=== PATIENT | female | born 1940 | race Caucasian/White ===

== ENCOUNTER 2017-10-11 20:58 | Emergency (ER) | payer MEDICARE, SELFPAY ==
[2017-10-11 21:07] VITALS: BP 119/67; PULSE 74; RESP 18; TEMP 36.9; O2SAT 97
--- NOTE | 2017-10-11 21:26 | DI.RAD.S_ITS ---
PROCEDURE: XR HAND LT MIN 3V INDICATIONS: left hand / thumb pain after striking it TECHNIQUE: 3 views of the hand(s) acquired. COMPARISON: None. FINDINGS: Bones: No fractures or dislocations. Carpal bones are normally aligned. No suspicious bony lesions. 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 Soft tissues: No suspicious soft tissue calcifications. IMPRESSION: No fracture. No acute osseous lesion. If there are persistent symptoms or clinical suspicion for pathology, then repeat radiographs or advanced imaging (CT, MRI or bone scan) should be considered for further evaluation. Dictated by: Elsa Singer MD, PhD on 10/11/2017 at 21:47 Approved by: Elsa Singer MD, PhD on 10/11/2017 at 21:49
--- NOTE | 2017-10-11 22:03 | ED.UPPEXIN ---
HPI - Extremity Injury (Upper) General Chief Complaint: Extremity Injury, Upper Stated Complaint: LEFT HAND INJURY Time Seen by Provider: 10/11/17 21:16 History of Present Illness HPI narrative: HPI 77-year-old female presents for evaluation of left thumb pain after dropping a large jar of peanut butter on it earlier today. Pain gradually worsened after dropping the peanut butter jar. Notes normal sensation. Denies further injuries. ROS with no recent constitutional symptoms. Exam Gen: Pleasant, non-toxic appearing, resting comfortably HEENT: NC, AT, PEERL, EOMI. Resp: Clear to auscultation bilaterally. Unlabored respirations with a normal work of breathing. Card: Regular rate and rhythm. Extremities warm and well perfused. GI: Non-distended. : Deferred MSK: Left Upper Extremity - visually normal, full functional range of motion of the shoulder, elbow, wrist, and fingers. No abnormal warmth, tenderness, or other palpable abnormalities of the joints or upper arm or forearm; muscle compartments soft.2+ radial pulse, all fingers warm and well perfused.Sensation intact to touch on all fingers. Patient able to flex, extend, abduct, adduct all fingers and move thumb in opposition with full functional range of motion. Brisk capillary refill in all fingers. No anatomic snuff box tenderness palpation. Negative hook of hamate pull test. Wrist visually normal without tenderness palpation. Mild tenderness to palpation of the base of the thumb. Neuro: AO x 3, no facial asymmetry, vision and hearing WNL. Heme/Lymph: Deferred Skin: Normal color with no visible lesions (other than noted above). Psych: Mood and affect appropriate. XR L Hand: no acute traumatic abnormalities. MDM Previous chart, nursing note, and vitals reviewed. A: 77-year-old female presents for evaluation of left thumb pain after dropping a large jar of peanut butter on it earlier today. DDx & Evaluation: imaging without evidence of fracture, exam without evidence of occult scaphoid or hook of hamate injury, CMS intact.. Suspect contusions. Discharged with instructions to use OTC analgesics as needed. Return to care precautions provided. Impression: left hand pain. (please reference below for remainder of encounter information) Related Data Home Medications Medication Instructions Recorded Confirmed CALCIUM CARBONATE (#CALCIUM) 1,000 mg PO QDAY #0 01/01/11 Vitamin E Succinate (#VITAMIN E) 400 iu PO QDAY #0 01/01/11 cholecalciferol (vitamin D3) 5,000 u PO QDAY #0 01/01/11 [Vitamin D3] ibuprofen 200 mg PO PRN #0 01/01/11 [VITAMIN C] 1,500 PO QDAY #0 01/08/11 niacinamide [Niacin (niacinamide)] 1,500 mg PO QDAY #0 01/08/11 alendronate [Fosamax] 70 mg PO QWEEK #0 02/27/16 citalopram [Celexa] 10 mg PO QDAY #0 02/27/16 Allergies Allergy/AdvReac Type Severity Reaction Status Date / Time No Known Drug Allergies Allergy Verified 10/11/17 21:07 [facility] Social History Smoking Status: Never smoker Exam Initial Vital Signs Initial Vital Signs: Vital Signs Temperature 98.5 F 10/11/17 21:07 Pulse Rate 74 10/11/17 21:07 Respiratory Rate 18 10/11/17 21:07 Blood Pressure 119/67 10/11/17 21:07 Pulse Oximetry 97 10/11/17 21:07 Course Orders Ordered: ED Orders 10/11/17 21:26 XR hand LT min 3V Stat Vital Signs - 8 hr 10/11/17 21:07 Temperature 98.5 F Pulse Rate 74 Respiratory Rate 18 Blood Pressure 119/67 Pulse Oximetry 97 Discharge Plan Departure Prescriptions: No Action CALCIUM CARBONATE (#CALCIUM) 1,000 mg PO QDAY Qty: 0 RF: 0 cholecalciferol (vitamin D3) [Vitamin D3] 1,000 UNIT tablet 5,000 u PO QDAY Qty: 0 RF: 0 Vitamin E Succinate (#VITAMIN E) 400 iu PO QDAY Qty: 0 RF: 0 ibuprofen 200 MG capsule 200 mg PO PRN Qty: 0 RF: 0 [VITAMIN C] 1,500 PO QDAY Qty: 0 RF: 0 niacinamide [Niacin (niacinamide)] 500 MG tablet 1,500 mg PO QDAY Qty: 0 RF: 0 citalopram [Celexa] 10 MG tablet 10 mg PO QDAY Qty: 0 RF: 0 alendronate [Fosamax] 70 MG tablet 70 mg PO QWEEK Qty: 0 RF: 0
[2017-10-11 22:40] VITALS: BP 136/71; PULSE 69; RESP 15; O2SAT 97
== END 2017-10-11 22:42 | disposition home or self-care (01) ==
PROVIDERS: Emergency Provider Emergency Medicine; Family Provider Physician Assistant; PCP Physician Assistant
DX: M79.642 Pain in left hand (principal)
CPT/HCPCS: 73130; 99282; 99283

== ENCOUNTER → 2018-06-16 15:58 | Outpatient (CLI) | payer MEDICARE, SELFPAY ==
--- NOTE | 2018-06-16 | DI.RAD.S_ITS ---
PROCEDURE: XR CHEST 2V INDICATIONS: COUGH TECHNIQUE: 2 views of the chest were acquired. COMPARISON: [facility], , CHEST 1VW (PORTABLE), 06/05/2014, 10:26. FINDINGS: Surgical changes and devices: None. Lungs and pleura: No acute consolidation. Scattered subsegmental atelectasis and/or scarring. No pleural effusions or pneumothorax. Mediastinum: Mediastinal contours are normal. Heart size is normal. Lateral curvature of the spine. IMPRESSION: No acute disease. Dictated by: Clem Escobar M.D. on 06/16/2018 at 17:23 Approved by: Clem Escobar M.D. on 06/16/2018 at 17:25
== END ==
PROVIDERS: PCP Physician Assistant; Visit Provider Physician Assistant
DX: R05 Cough (principal)
CPT/HCPCS: 71046

== ENCOUNTER 2018-06-17 03:13 | Observation (INO) | payer MEDICARE, SELFPAY ==
--- NOTE | 2018-06-17 | DI.US.S_ITS ---
PROCEDURE: US PERIPH VENOUS LOW EXTREM LT INDICATIONS: LLE EDEMA, PAIN TECHNIQUE: Real-time imaging, as well as color and pulse Doppler interrogation, were performed of the lower extremity deep veins from the inguinal ligament to the popliteal fossa. COMPARISON: None. FINDINGS: The deep veins are normally compressible, and free of intraluminal thrombus. Color and pulse Doppler demonstrate normal phasic intraluminal flow. There is normal augmentation response to distal compression maneuver. IMPRESSION: No DVT found. Dictated by: Yanick Tatum M.D. on 06/17/2018 at 8:46 Approved by: Yanick Tatum M.D. on 06/17/2018 at 8:47
[2018-06-17 03:22] VITALS: BMI 24.7
[2018-06-17 03:25] VITALS: BP 164/83; PULSE 76; RESP 14; TEMP 36.4; O2SAT 100
[2018-06-17] MEDS: ASPIRIN 81 MG TAB 324 MG PO (03:37)
[2018-06-17] MEDS: SODIUM CHLORIDE 0.9% 1,000 ML 150 ML IV (03:38)
[2018-06-17 03:44] LABS: Add Manual Diff / Slide Review NO; Basophils Absolute Auto 0 /uL (0-100); Basophils Percent Auto 0.6 % (0-2); Eosinophils Absolute Auto 200 /uL (0-450); Hematocrit 43.9 % (36-46); Hemoglobin 14.6 g/dL (12.0-16.0); Lymphocytes Absolute Auto 2100 /uL (1100-4500); Lymphocytes Percent Auto 34.5 % (25-40); Mean Corpuscular HGB Conc 33.3 % (30-36); Mean Corpuscular Hemoglobin 29.7 PG (26-34); Monocytes Absolute Auto 600 /uL (0-900); Monocytes Percent Auto 10.5 % (3-14); Neutrophils Absolute Auto 3000 /uL (1500-7000); Neutrophils Percent Auto 50.4 % (50-75); Platelet Count 265 X10^3/uL (150-400); Red Blood Cell Count 4.94 X10^6/uL (4.0-5.2); Red Cell Distribution Width 13.8 % (11.6-14.8); White Blood Cell Count 5.9 X10^3/uL (4.5-11.0)
[2018-06-17 03:46] LABS: Alanine Aminotransferase 43 IU/L (9-52); Albumin 4.4 g/dL (3.5-5.0); Albumin Globulin Ratio 1.6 (1.0-2.8); Alkaline Phosphatase 53 U/L (38-126); Aspartate Aminotransferase 30 IU/L (14-36); Bilirubin Total 0.6 mg/dL (0.2-1.3); Blood Urea Nitrogen 15 mg/dL (7-17); Calcium 9.5 mg/dL (8.4-10.2); Carbon Dioxide 26 mmol/L (22-32); Chloride 107 mmol/L (98-107); Creatine Kinase 120 U/L (30-135); Estimated Glomerular Filt Rate > 60.0 mL/min (>60); Globulin 2.8 g/dL (1.7-4.1); Glucose 96 mg/dL (80-110); HEMOLYSIS < 15 (0-50); Lipase 179 U/L (23-300); Potassium 3.4 mmol/L (3.4-5.1); Sodium 141 mmol/L (137-145); Total Protein 7.2 g/dL (6.3-8.2)
[2018-06-17 03:57] LABS: Troponin I < 0.012 ng/mL (0.01-0.034)
[2018-06-17 04:00] LABS: B Type Natriuretic Peptide < 100 (<100)
[2018-06-17 04:01] LABS: CKMB % Relative Index 3.1 % (1.5-5.0); Creatine Kinase MB 3.75 ng/mL (<2.37)
--- NOTE | 2018-06-17 04:02 | ED_ITS ---
HPI - Chest Pain General Chief Complaint: Shortness of Breath/Dyspnea Stated Complaint: shortness of breath uncomfortable right side Time Seen by Provider: 06/17/18 03:21 Source: patient and family Mode of arrival: ambulatory Limitations: no limitations History of Present Illness HPI narrative: 77-year-old female nonsmoker with history of chronic cough presents to the emergency department this morning with her in the chief complaint of approximately 30 min of right-sided chest pressure with radiation to her back. She states she has an associated shortness of breath. She is not dizzy nor weak or lightheaded. She denies any provocation or palliation of her discomfort. She saw her primary care provider earlier today with a chief complaint of a chronic cough. She states that deep breath, cough or use of her right upper extremity do not worsen her pain. She denies provocation of her pain with palpation. She has had some whitish sputum production but is otherwise well and free of complaint. She denies nausea, vomiting or diarrhea. She denies any dysuria, frequency or urgency. She denies any history of the same. She has had no recent long-distance travel and denies a history of clot Related Data Home Medications Medication Instructions Recorded Confirmed CALCIUM CARBONATE (#CALCIUM) 1,000 mg PO QDAY #0 01/01/11 Vitamin E Succinate (#VITAMIN E) 400 iu PO QDAY #0 01/01/11 cholecalciferol (vitamin D3) 5,000 u PO QDAY #0 01/01/11 [Vitamin D3] ibuprofen 200 mg PO PRN #0 01/01/11 [VITAMIN C] 1,500 PO QDAY #0 01/08/11 niacinamide [Niacin (niacinamide)] 1,500 mg PO QDAY #0 01/08/11 alendronate [Fosamax] 70 mg PO QWEEK #0 02/27/16 citalopram [Celexa] 10 mg PO QDAY #0 02/27/16 Allergies Allergy/AdvReac Type Severity Reaction Status Date / Time No Known Drug Allergies Allergy Verified 10/11/17 21:07 Review of Systems Constitutional Denies chills, Denies fever(s), Denies lethargy and Denies weakness Eyes Denies change in vision, Denies eye discharge, Denies irritation and Denies loss of vision ENT Ears, Nose, Mouth, and Throat: Denies change in voice, Denies neck pain and Denies sore throat Cardiovascular Reports chest pain, Denies irregular heart rhythm, Denies lightheadedness, Denies palpitations, Reports dyspnea, Denies dyspnea on exertion and Denies orthopnea Respiratory Denies cough, Reports dyspnea, Denies dyspnea on exertion and Denies wheezing Gastrointestinal Gastrointestinal: Denies abdominal pain, Denies change in bowel habits, Denies diarrhea, Denies nausea and Denies vomiting Genitourinary Denies hematuria, Denies flank pain, Denies urinary incontinence and Denies urinary urgency Musculoskeletal Denies neck pain Integumentary/Breasts Denies pruritus, Denies erythema, Denies rash and Denies wounds Neurologic Denies confusion, Denies loss of vision and Denies weakness Psychiatric Denies anxiety, Denies confusion, Denies depression, Denies homicidal ideation and Denies suicidal ideation Endocrine Denies palpitations Hematologic/Lymphatic Denies easy bruising Allergic/Immunologic Denies wheezing PFSH Social History Smoking Status: Never smoker Social History Smoking Status: Never smoker Exam Narrative Exam Narrative: GENERAL: Pleasant 77-year-old female appears younger than stated age in mild distress HEAD: Atraumatic. Normocephalic. No temporal or scalp tenderness. EYES: Pupils equal round and reactive. Extraocular motions intact. No scleral icterus. No injection or drainage. ENT: Nose without bleeding, purulent drainage or septal hematoma. Throat without erythema, tonsillar hypertrophy or exudate. Uvula midline. Airway patent. NECK: Trachea midline. No JVD or lymphadenopathy. Supple, nontender, no meningeal signs. CARDIOVASCULAR: Regular rate and rhythm without murmurs, gallops, or rubs. No reproducible pain with palpation or range of motion of right upper extremity RESPIRATORY: Clear to auscultation. Breath sounds equal bilaterally. No wheezes, rales, or rhonchi. GASTROINTESTINAL: Abdomen soft, non-tender, nondistended. No hepato- splenomegaly, or palpable masses. No guarding. EXTREMITIES: No clubbing, cyanosis, or edema. No joint tenderness, effusion, or edema noted. BACK: Nontender without deformity or crepitance. No flank tenderness. NEURO: AOx3. SKIN: No rash or erythema. Initial Vital Signs Initial Vital Signs: Vital Signs Temperature 97.6 F 06/17/18 03:25 Pulse Rate 76 06/17/18 03:25 Respiratory Rate 14 06/17/18 03:25 Blood Pressure 164/83 H 06/17/18 03:25 Pulse Oximetry 100 06/17/18 03:25 Scores HEART Score Heart Score history: Moderately Suspicious Heart Score EKG: Non-Specific repolarization disturbance Heart Score Age: > or = 65 years old Heart Score risk factors: No known risk factors Heart Score troponin: < or = to normal limit Heart Score Total: 4 PERC Score Age greater than or equal to 50 years: Yes Heart rate greater than or equal to 100 bpm: No Room Air O2 Sat less than 95%: No Unilateral leg swelling: No Recent trauma or surgery: No Hemoptysis: No Prior PE or DVT: No Hormone Use: No Total PERC Score: 1 Vinh' Criteria for PE Clinical signs and symptoms of PE: No PE is #1 Dx or equally likely: No Heart rate > 100: No Immobilization at least 3 days or surg in previous 4 weeks: No History of PE or DVT: No Hemoptysis: No Malignancy w/Treatment within 6 months or palliative: No Wells' PE Score total: 0 Course Course Narrative: Using Nehemias Hess's PE algorithim (also found in UTDOL) patient Wells Score calculated and low risk path followed. Not PERC negative given age therefore DDimer ordered. Though very slightly elevated at 259 ng/mL it is still quite low when corrected for age (790) and no CTA needed. Patient HEART score is 4, this and time frame make it impossible to safely discharge patient from the ED. She will need to come into the hospital for further evaluation of her chest pressure, which will surely include repeat labs, but also possible ECHO, stress test, or other (as dictated by hospitalist) Orders Ordered: ED Orders 06/17/18 03:20 B Type Natriuretic Peptide Stat Complete Blood Count AUTO DIFF Stat Comprehensive Metabolic Panel Stat D Dimer Stat Lipase Stat Troponin & CK Cardiac Panel Stat 06/17/18 03:26 EKG-12 Lead Stat Sodium Chloride (Normal Saline 0.9%) 1,000 mls @ 150 mls/hr IV CONT GRETTA Last Admin: 06/17/18 03:38 Dose: 150 mls/hr Discontinued Medications Aspirin (Aspirin Chew) 324 mg PO NOW ONE Stop: 06/17/18 03:27 Last Admin: 06/17/18 03:37 Dose: 162 mg Consultations Consultation #1: hospitalist happy to accept Vital Signs - 8 hr 06/17/18 03:25 06/17/18 04:33 Temperature 97.6 F Pulse Rate 76 65 Respiratory Rate 14 14 Blood Pressure [Left Arm] 164/83 H 126/73 Pulse Oximetry 100 97 MDM - Chest Pain Medical Records Data Attestation: I reviewed the patient's medical records. Lab Data Attestation: I reviewed the patient's lab results. Result diagrams: 06/17/18 03:20 06/17/18 03:20 Lab Results 06/17/18 06/17/18 06/17/18 Range/Units 03:20 03:20 03:20 WBC 5.9 (4.5-11.0) X10^3/uL RBC 4.94 (4.0-5.2) X10^6/uL Hgb 14.6 (12.0-16.0) g/dL Hct 43.9 (36-46) % MCV 89.0 (80-100) fL MCH 29.7 (26-34) PG MCHC 33.3 (30-36) % RDW 13.8 (11.6-14.8) % Plt Count 265 (150-400) X10^3/uL Neut % (Auto) 50.4 (50-75) % Lymph % (Auto) 34.5 (25-40) % [place] % (Auto) 10.5 (3-14) % Eos % (Auto) 4.0 (2-4) % Baso % (Auto) 0.6 (0-2) % Neut # (Auto) 3000 (3018-1593) /uL Lymph # (Auto) 2100 (1942-3352) /uL [place] # (Auto) 600 (0-900) /uL Eos # (Auto) 200 (0-450) /uL Baso # (Auto) 0 (0-100) /uL D-Dimer 259 H (<230) ng/mL Sodium 141 (137-145) mmol/L Potassium 3.4 (3.4-5.1) mmol/L Chloride 107 (98-107) mmol/L Carbon Dioxide 26 (22-32) mmol/L BUN 15 (7-17) mg/dL Creatinine 0.60 (0.52-1.04) mg/dL Estimated GFR > 60.0 (>60) mL/min BUN/Creatinine Ratio 25.0 H (6-22) Glucose 96 (80-110) mg/dL Calcium 9.5 (8.4-10.2) mg/dL Total Bilirubin 0.6 (0.2-1.3) mg/dL AST 30 (14-36) IU/L ALT 43 (9-52) IU/L Alkaline Phosphatase 53 (38-126) U/L Total Creatine Kinase 120 (30-135) U/L CK-MB (CK-2) 3.75 H (<2.37) ng/mL CK-MB (CK-2) Rel Index 3.1 (1.5-5.0) % Troponin I < 0.012 (0.01-0.034) ng/mL B-Natriuretic Peptide < 100 (<100) Total Protein 7.2 (6.3-8.2) g/dL Albumin 4.4 (3.5-5.0) g/dL Globulin 2.8 (1.7-4.1) g/dL Albumin/Globulin Ratio 1.6 (1.0-2.8) Lipase 179 (23-300) U/L Urine Dip Bedside Urine Glucose Negative Bedside Urine Bilirubin - Negative Bedside Urine Ketone - Negative Urine Specific [place] 1.010 Bedside Urine Occult Blood - Negative Bedside Urine pH 6.5 Bedside Urine Protein - Negative Bedside Urine Urobilinogen - Negative Bedside Urine Nitrite - Negative Bedside Urine Leukocytes - Negative Esterase Imaging Data Chest x-ray: Radiologist's impression: [place] [address] XRay Report Signed Patient: Karen Thomason#: [id number] : 1941Acct:[id number] Age/Sex: 77 / FDate of Service: 06/16/18 Loc: RAD Accession Number: [id number] Procedure: XR chest 2V Ordering Provider: Ani Schaefer P.A-C PROCEDURE: XR CHEST 2V INDICATIONS: COUGH TECHNIQUE: 2 views of the chest were acquired. COMPARISON: [facility]ed [facility], , CHEST 1VW (PORTABLE), 06/05/2014, 10:26. FINDINGS: Surgical changes and devices: None. Lungs and pleura: No acute consolidation. Scattered subsegmental atelectasis and/or scarring. No pleural effusions or pneumothorax. Mediastinum: Mediastinal contours are normal. Heart size is normal. Lateral curvature of the spine. IMPRESSION: No acute disease. Dictated by: Clem Escobar M.D. on 06/16/2018 at 17:23 Approved by: Clem Escobra M.D. on 06/16/2018 at 17:25 ECG Data Attestation: I personally reviewed and interpreted this ECG as follows: Prior ECG tracings: not available for review Interpretation: EKG is normal sinus rhythm rate [71 ] and free of any signs of ischemia or ectopy. No ST segmental elevation or depression. No T wave inversions. RBBB Discharge Plan Departure Patient Disposition: Admitted as Observation Clinical Impression: Chest pain Admit Date/Time: 06/17/18 05:01 Admit Provider: Bakari Turcios
[2018-06-17 04:33] VITALS: BP 126/73; PULSE 65; RESP 14; O2SAT 97
--- NOTE | 2018-06-17 04:38 | PC.NURSE ---
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 She saw her PCP yesterday for the chronic cough and states that has intermittent whitish sputum. Pt able to speak in full sentences O2 99% on RA respirations 12, LS clear bi lat to auscultation.
[2018-06-17 04:44] LABS: D Dimer 259 ng/mL (<230)
--- NOTE | 2018-06-17 05:05 | PC.NURSE ---
Med Rec attempted, pt unable to remember medication names and does not have list with her. States she will ask to bring for her.
[2018-06-17 05:07] VITALS: BP 143/65; PULSE 68; RESP 11; O2SAT 99
[2018-06-17 05:24] VITALS: BMI 24.7
[2018-06-17 05:45] VITALS: BP 158/73; PULSE 69; RESP 17; TEMP 36.4; O2SAT 96
--- NOTE | 2018-06-17 05:45 | P.HP_ITS ---
History of Present Illness Chief complaint: shortness of breath uncomfortable right side Narrative: The patient is a 77-year-old thin female w/ PMH of osteoporosis and depression. No prior history of cardiac disease, CVA, thyroid problems, or blood clots. Patient presented to the ED at approximately 2:45 a.m. out of concern for chest discomfort. Localized to right upper aspect of the chest with radiation to the shoulder and posterior torso (to the area of right scapula). Patient is not able to characterize the pain well, she does not specified as pressure or tightness, however does noted to be a discomfort that she has never experienced before. Denies sensation of joint or muscle discomfort. Pain ranged from 2-4 / 10. No associated symptoms at time of the event; however, reports [id number] exertional dyspnea while walking up to the ED. At time of triage patient's blood pressure was 164/83 mmHg. Associated symptoms do not include headache, change in vision, heaviness of the extremities, dizziness, lightheadedness, syncopal events, abdominal pain, nausea, vomiting, or diarrhea. Patient reports experiencing unilateral left lower extremity edema 1 month ago. Denies pain in the extremities with ambulation. She does snore, but no prior diagnosis of ANGEL. No history of hypertension, dyslipidemia, or obesity. Patient reports having a chronic cough since at least October, cough is productive with white purulence. Phlegm and cough occur most often after patient has been in supine position and at times after a meal. No particular bothersome GI disorders per patient. She does note intermittent reflux, not on a PPI or H2 ani. Denies difficulty swallowing. She does have significant belching (noted during the exam), which she notes to be chronic for her. No history of allergic rhinitis and denies significant symptoms of sinusitis or postnasal drip. No history of bronchitis. At home patient has taken ASA 162 mg. She received additional 162 mg in the ED. CXR without acute cardio pulmonary findings. EKG revealed sinus rhythm and BBB. First troponin is negative. CK-MB 3.75 (mildly elevated). BNP less than 100. Lipase 179. No leukocytosis. Hemoglobin stable. Electrolytes within normal limits with exception of borderline potassium (K 3.4). PMH: Osteoporosis, depression PSH: No known surgical history FHx: Father () - heart disease, sister () - breast cancer, sister () - groin cancer SHx: No prior current history of tobacco, alcohol, or recreational drug use. Patient is and lives with her in her own home. She is functiona lly independent. Patient History Social History Smoking Status: Never smoker Family & Social History Tobacco & Substance use: Smoking Status Lifelong non-smoker alcohol intake frequency Lifelong non-drinker Substance Use Type Denies current or prior use Meds Home Medications Medication Instructions Recorded Confirmed Type CALCIUM CARBONATE (#CALCIUM) 1,000 mg PO QDAY #0 01/01/11 History Vitamin E Succinate (#VITAMIN E) 400 iu PO QDAY #0 01/01/11 History cholecalciferol (vitamin D3) 5,000 u PO QDAY #0 01/01/11 History [Vitamin D3] ibuprofen 200 mg PO PRN #0 01/01/11 History [VITAMIN C] 1,500 PO QDAY #0 01/08/11 History niacinamide [Niacin (niacinamide)] 1,500 mg PO QDAY #0 01/08/11 History alendronate [Fosamax] 70 mg PO QWEEK #0 02/27/16 History citalopram [Celexa] 10 mg PO QDAY #0 02/27/16 History Allergies Allergy/AdvReac Type Severity Reaction Status Date / Time No Known Drug Allergies Allergy Verified 10/11/17 21:07 Review of Systems Review of Systems All systems reviewed & are unremarkable except as noted in HPI and below Exam Vital Signs (past 8 hours): - 06/17/18 03:25 06/17/18 04:33 06/17/18 05:07 Temperature 97.6 F Pulse Rate 76 65 68 Respiratory Rate 14 14 11 L Blood Pressure [Left Arm] 164/83 H 126/73 143/65 H Pulse Oximetry 100 97 99 Oxygen Delivery Method Room Air Narrative Exam Narrative: Constitutional: NAD Neurologic: AOx3, no focal neurological deficits Head: NC, AT Eyes: PERRL, EOMI, no scleral icterus Ears: external ears normal, no otorrhea Nose: external nose normal, no rhinorrhea or epistaxis Throat: MMM, oropharynx w/o exudate Neck: no masses, lymphadenopathy, or JVD Chest / Respiratory: equal chest rise, unlabored respiratory effort, diminished breath sounds Heart / CV: S1S2, no murmur; chest pain is not reproducible Abdomen / GI: round, RUQ tenderness : no suprapubic tenderness, no CVA Peripheral / Vascular: warm to touch, DP and PT pulses palpable, no edema; LLE calf tenderness w/ palpation Musc: full ROM of upper and lower extremities, adequate muscle tone and bulk Skin: no ecchymosis or suspicious lesions / ulcers Objective Labs Result Diagrams: 06/17/18 03:20 06/17/18 03:20 Labs: Laboratory Results - last 24 hr 06/17/18 06/17/18 06/17/18 03:20 03:20 03:20 WBC 5.9 RBC 4.94 Hgb 14.6 Hct 43.9 MCV 89.0 MCH 29.7 MCHC 33.3 RDW 13.8 Plt Count 265 Neut % (Auto) 50.4 Lymph % (Auto) 34.5 [place] % (Auto) 10.5 Eos % (Auto) 4.0 Baso % (Auto) 0.6 Neut # (Auto) 3000 Lymph # (Auto) 2100 [place] # (Auto) 600 Eos # (Auto) 200 Baso # (Auto) 0 D-Dimer 259 H Sodium 141 Potassium 3.4 Chloride 107 Carbon Dioxide 26 BUN 15 Creatinine 0.60 Estimated GFR > 60.0 BUN/Creatinine Ratio 25.0 H Glucose 96 Calcium 9.5 Total Bilirubin 0.6 AST 30 ALT 43 Alkaline Phosphatase 53 Total Creatine Kinase 120 CK-MB (CK-2) 3.75 H CK-MB (CK-2) Rel Index 3.1 Troponin I < 0.012 B-Natriuretic Peptide < 100 Total Protein 7.2 Albumin 4.4 Globulin 2.8 Albumin/Globulin Ratio 1.6 Lipase 179 Assessment & Plan Assessment & Plan narrative: Atypical chest pain, present on admission, acute s/s: sudden onset of right upper chest/right shoulder pain, exertional dyspnea RF: FHx heart disease, advanced age DDx: GERD / GI disorders, chest wall pain, PE - Trend troponins Q3H - NPO - Stress Test - Risk stratify: FLP, A1C LLE pain, present on admission, acute h/o LLE swelling in the past month. D- Dimer 259 - U/S LLE r/o DVT RUQ tenderness, present on admission, acute w/ associated R- shoulder pain. - Consider RUQ U/S
--- NOTE | 2018-06-17 05:56 | PC.NURSE ---
Admit Pt arrived from ER, SBA into bed. Denies CP, tele in place. Spouse at bedside. IV patent. NS hung. Oriented to facility, call light in reach.
[2018-06-17 08:11] VITALS: BP 159/67; PULSE 75; RESP 24; TEMP 36.4; O2SAT 96
[2018-06-17 08:34] LABS: Hemoglobin A1C% w Est Avg Glu 5.5 % (4.0-6.0)
[2018-06-17 08:38] LABS: Cholesterol 229 mg/dL (140-199); HDL Cholesterol 46 mg/dL (40-60); LDL Cholesterol Calculated 164 mg/dL (<100); Triglycerides 93 mg/dL (35-150)
[2018-06-17 08:42] LABS: Magnesium 2.4 mg/dL (1.6-2.3)
--- NOTE | 2018-06-17 08:51 | CM.DANOTE ---
DCP: Case received, EMR reviewed and met with patient. Introduced self and role. DCP template completed with information currently available. Patient is a 77 year old female who admitted early this morning to the care of the hospitalist team. PCP: Carlos Sumner Payer: confirmed: [employer] Medicare. Patient came to hospital via private vehicle due to symptoms of shortness of breath, as well as some a-typical chest pain. Patient had been complaining of pain in her right upper chest area. Patient is here under observation, and was having ultrasound of her leg with this caser in walked in. Patient avery. Lives here in [place] with her spouse, Aydin. Also has a son named Kervin that lives in [place]. She stated that she is independent at home, does not use any devices, such as cane or walker. Stated, she's usually pretty healthy. P: DCP to continue to follow. Should be able to return home when she is medically stable, and pending test results. Sabiha Feliz RN/Maintenance Mechanic Helper
[2018-06-17 08:52] LABS: Troponin I < 0.012 ng/mL (0.01-0.034)
[2018-06-17 10:43] LABS: Troponin I < 0.012 ng/mL (0.01-0.034)
[2018-06-17 11:37] VITALS: BP 135/78; PULSE 74; RESP 16; TEMP 36.4; O2SAT 97
--- NOTE | 2018-06-17 12:22 | P.PCN_ITS ---
Cardiac Stress Test Report Referral & Results Date Patient Seen: 06/17/18 Time Patient Seen: 12:20 Requesting provider: Rayna Banks Indication: Chest pain, current inpatient Rest ECG: Unremarkable Procedure Note: Today following both written and verbal informed consent the patient was exercised according to a standard Steve protocol patient went for a total of 5 min 23 sec achieving a maximum heart rate of 160 for maximum systolic blood pressure of 170. This is approximately 7.0 METS. Exercise was terminated at this point because of targets for med and patient was unable to continue because of fatigue. Patient was also given Cardiolite through a previously started Hep-Lock IV by the infectious disease technician approximately 1 minute prior to the cessation of exercise. There were no ST-T segment changes Normal heart rate and blood pressure response to exercise Functional aerobic impairment estimated at-10% on the active scale or better No dysrhythmia Impression: No ECG evidence of ischemia Excellent exercise capacity Please see perfusion imaging report for further details regarding possible ischemia Please note: Actual ECG tracings can be found in the PACS system.
--- NOTE | 2018-06-17 13:51 | P.DS_ITS ---
History of Present Illness Date Patient Seen: 06/17/18 Chief complaint: shortness of breath uncomfortable right side Narrative: Written by Bakari Turcios: The patient is a 77-year-old thin female w/ PMH of osteoporosis and depression. No prior history of cardiac disease, CVA, thyroid problems, or blood clots. Patient presented to the ED at approximately 2:45 a.m. out of concern for chest discomfort. Localized to right upper aspect of the chest with radiation to the shoulder and posterior torso (to the area of right scapula). Patient is not able to characterize the pain well, she does not specified as pressure or tightness, however does noted to be a discomfort that she has never experienced before. Denies sensation of joint or muscle discomfort. Pain ranged from 2-4 / 10. No associated symptoms at time of the event; however, reports [id number] exertional dyspnea while walking up to the ED. At time of triage patient's blood pressure was 164/83 mmHg. Associated symptoms do not include headache, change in vision, heaviness of the extremities, dizziness, lightheadedness, syncopal events, abdominal pain, n ausea, vomiting, or diarrhea. Patient reports experiencing unilateral left lower extremity edema 1 month ago. Denies pain in the extremities with ambulation. She does snore, but no prior diagnosis of ANGEL. No history of hypertension, dyslipidemia, or obesity. Patient reports having a chronic cough since at least October, cough is productive with white purulence. Phlegm and cough occur most often after patient has been in supine position and at times after a meal. No particular bothersome GI disorders per patient. She does note intermittent reflux, not on a PPI or H2 ani. Denies difficulty swallowing. She does have significant belching (noted during the exam), which she notes to be chronic for her. No history of allergic rhinitis and denies significant symptoms of sinusitis or postnasal drip. No history of bronchitis. At home patient has taken ASA 162 mg. She received additional 162 mg in the ED. CXR without acute cardio pulmonary findings. EKG revealed sinus rhythm and B BB. First troponin is negative. CK-MB 3.75 (mildly elevated). BNP less than 100. Lipase 179. No leukocytosis. Hemoglobin stable. Electrolytes within normal limits with exception of borderline potassium (K 3.4). PMH: Osteoporosis, depression PSH: No known surgical history FHx: Father () - heart disease, sister () - breast cancer, sister () - groin cancer SHx: No prior current history of tobacco, alcohol, or recreational drug use. Patient is and lives with her in her own home. She is functionally independent. Discharge Providers Date of admission: 06/17/18 05:01 Primary care physician: Ani Schaefer PA-C Discharge provider: Rayna Banks DO Discharge Date: 06/17/18 Summary Discharge Diagnosis: 1. Acute atypical chest pain, present on admission. Resolved. 2. Acute left lower extremity pain, present on admission. Resolved. 3. Acute right upper quadrant abdominal tenderness, present on admission. Resolved. 4. Hyperlipidemia, chronic, present on admission. Stable. 5. Schizophrenia, depression, and anxiety, present on admission. Stable. Hospital Course: Ghanshyam Thomason is a 77-year-old female with a past medical history significant for osteoporosis, schizophrenia, depression and anxiety who presented for abrupt onset right shoulder and chest discomfort at rest. 1. Acute atypical chest pain, present on admission. Resolved. -Patient presented with sudden onset of right upper chest/right shoulder pain with associated exertional dyspnea. -Cardiac risk factors include: FHx heart disease, advanced age. -DDx: GERD versus musculoskeletal versus esophageal spasm versus pectoris angina. -Trended troponins x 3 and < 0.012. -Nuclear medicine stress test was normal in stress phase with preserved ejection fraction and per drupal architect does not need resting portion. -Risk stratify: Hemoglobin A1c normal at 5.5% and fasting lipid panel demonstrated: Elevated total cholesterol 229, triglycerides 93, LDL 164, HDL 46. 2. Acute left lower extremity pain, present on admission. Resolved. -No reproducible left lower extremity pain today on exam. -Patient reports history of bilateral lower extremity swelling in the past month that spontaneously resolved on its own. D- Dimer 259. -Doppler ultrasound of left lower extremity did not demonstrate DVT. 3. Acute right upper quadrant abdominal tenderness, present on admission. Resolved. -No reproducible right upper quadrant tenderness today on exam. -Considered right upper quadrant abdominal ultrasound, however, patient's right upper quadrant abdominal pain has resolved or is unappreciable today on exam. She has no other symptoms to suggest pathology including nausea, vomiting, fever, chills, diarrhea, etc. therefore, this was not investigated. 4. Hyperlipidemia, chronic, present on admission. Stable. -Lipid panel as above. Recommended statin therapy and to discuss this with her PCP as she is on niacinamide for possible schizophrenia which has potential for rhabdomyolysis. 5. Schizophrenia, depression, and anxiety, present on admission. Stable. -Continued all home medications. Status at Discharge Functional status at discharge: independent ambulation Overall status at discharge: patient is back to baseline Exam Vital Signs (past 8 hours): - 06/17/18 08:11 06/17/18 11:37 Temperature 97.6 F 97.6 F Pulse Rate 75 74 Respiratory Rate 24 16 Blood Pressure 159/67 H 135/78 Pulse Oximetry 96 97 Oxygen Delivery Method Room Air Narrative Exam Narrative: General: Elderly female sitting in bed and in no acute distress, appears healthy and younger than stated age, well-developed, well-nourished, appropriately interactive. HEENT: Normocephalic, atraumatic. External ears without defect. Pupils equal, round, and reactive to light. Anicteric sclerae, moist conjunctivae, and no lid lag. Neck: Supple with full range of motion. No jugular venous distension. No bruits. No lymphadenopathy or thyromegaly. Cardiovascular: Regular rate and rhythm without murmurs, rubs, or gallops appreciated. Pulmonary: Clear to auscultation bilaterally without crackles, wheezes, or rhonchi. Normal respiratory effort with no use of accessory muscles. Abdomen: Soft, bowel sounds present, mild tenderness to palpation on left lower quadrant likely musculoskeletal, nondistended. No RUQ pain on exam. No hepatosplenomegaly or masses appreciated. Extremities: No clubbing, cyanosis, or edema. No reproducible right shoulder pain upon palpation. No left lower extremity pain on exam today as previously noted. Skin: Normal temperature, turgor, and texture; no rash, ulcers, or subcutaneous nodules appreciated. Neurological: Cranial nerves grossly intact. Normal muscle strength, tone, and bulk. Reflexes, coordination, and sensory function within normal limits. No known gait impairment. Psychiatric: Normal mood and affect. Alert and oriented to person, place, and time. Objective Labs Result Diagrams: 06/17/18 03:20 06/17/18 03:20 Labs: Laboratory Results - last 24 hr 06/17/18 06/17/18 06/17/18 03:20 03:20 03:20 WBC 5.9 RBC 4.94 Hgb 14.6 Hct 43.9 MCV 89.0 MCH 29.7 MCHC 33.3 RDW 13.8 Plt Count 265 Neut % (Auto) 50.4 Lymph % (Auto) 34.5 Tompkins % (Auto) 10.5 Eos % (Auto) 4.0 Baso % (Auto) 0.6 Neut # (Auto) 3000 Lymph # (Auto) 2100 Tompkins # (Auto) 600 Eos # (Auto) 200 Baso # (Auto) 0 D-Dimer 259 H Sodium 141 Potassium 3.4 Chloride 107 Carbon Dioxide 26 BUN 15 Creatinine 0.60 Estimated GFR > 60.0 BUN/Creatinine Ratio 25.0 H Glucose 96 Hemoglobin A1c Calcium 9.5 Magnesium Total Bilirubin 0.6 AST 30 ALT 43 Alkaline Phosphatase 53 Total Creatine Kinase 120 CK-MB (CK-2) 3.75 H CK-MB (CK-2) Rel Index 3.1 Troponin I < 0.012 B-Natriuretic Peptide < 100 Total Protein 7.2 Albumin 4.4 Globulin 2.8 Albumin/Globulin Ratio 1.6 Triglycerides Cholesterol LDL Cholesterol, Calc HDL Cholesterol Lipase 179 06/17/18 06/17/18 06/17/18 08:15 08:15 08:15 WBC RBC Hgb Hct MCV MCH MCHC RDW Plt Count Neut % (Auto) Lymph % (Auto) Tompkins % (Auto) Eos % (Auto) Baso % (Auto) Neut # (Auto) Lymph # (Auto) Tompkins # (Auto) Eos # (Auto) Baso # (Auto) D-Dimer Sodium Potassium Chloride Carbon Dioxide BUN Creatinine Estimated GFR BUN/Creatinine Ratio Glucose Hemoglobin A1c 5.5 Calcium Magnesium 2.4 H Total Bilirubin AST ALT Alkaline Phosphatase Total Creatine Kinase CK-MB (CK-2) CK-MB (CK-2) Rel Index Troponin I < 0.012 B-Natriuretic Peptide Total Protein Albumin Globulin Albumin/Globulin Ratio Triglycerides 93 Cholesterol 229 H LDL Cholesterol, Calc 164 H HDL Cholesterol 46 Lipase 06/17/18 10:05 WBC RBC Hgb Hct MCV MCH MCHC RDW Plt Count Neut % (Auto) Lymph % (Auto) Tompkins % (Auto) Eos % (Auto) Baso % (Auto) Neut # (Auto) Lymph # (Auto) Tompkins # (Auto) Eos # (Auto) Baso # (Auto) D-Dimer Sodium Potassium Chloride Carbon Dioxide BUN Creatinine Estimated GFR BUN/Creatinine Ratio Glucose Hemoglobin A1c Calcium Magnesium Total Bilirubin AST ALT Alkaline Phosphatase Total Creatine Kinase CK-MB (CK-2) CK-MB (CK-2) Rel Index Troponin I < 0.012 B-Natriuretic Peptide Total Protein Albumin Globulin Albumin/Globulin Ratio Triglycerides Cholesterol LDL Cholesterol, Calc HDL Cholesterol Lipase Discharge Plan Discharge Plan Patient Disposition: Home Discharge comment: Your being discharged home. Your nuclear medicine perfusion stress test did not demonstrate any signs of heart attack or impending heart attack. It is unclear what caused your right shoulder discomfort but it is unlikely related to your heart. It may possibly be related to acid reflux versus muscle spasm versus esophageal spasm versus coronary artery spasm called pectoris angina. Your cholesterol is mildly elevated and you should talk to your PCP regarding lifestyle modification versus statin therapy. You were prescribed aspirin 81 mg daily please take with food. Recommend that you be treated for your chronic cough with antihistamine for postnasal drip (Benadryl nightly and either Claritin/Zyrtec/Olive daily), ranitidine or famotidine for possible acid reflux, and albuterol and/or montelukast for possible asthma. The ultrasound of your lower extremities did not demonstrate any blood clot or DVT. Discharge Med Rec/Prescriptions Prescriptions: New aspirin 81 mg Tablet,Delayed Release (Dr/Ec) 81 mg PO DAILY Qty: 30 RF: 0 Continued CALCIUM CARBONATE (#CALCIUM) 1,000 mg PO QDAY Qty: 0 RF: 0 cholecalciferol (vitamin D3) [Vitamin D3] 1,000 UNIT tablet 5,000 u PO QDAY Qty: 0 RF: 0 Vitamin E Succinate (#VITAMIN E) 400 iu PO QDAY Qty: 0 RF: 0 ibuprofen 200 MG capsule 200 mg PO PRN Qty: 0 RF: 0 [VITAMIN C] 1,000 PO BID Qty: 0 RF: 0 niacinamide [Niacin (niacinamide)] 500 MG tablet 500 mg PO QDAY Qty: 0 RF: 0 citalopram [Celexa] 10 MG tablet 20 mg PO QDAY Qty: 0 RF: 0 alendronate [Fosamax] 70 MG tablet 70 mg PO QWEEK Qty: 0 RF: 0 Follow up/Referrals: Ani Schaefer PA-C [Primary Care Provider] - 06/23/18 11:15 am (*appt:06/23 @ 11:15 check in @ [facility] with Haroon Fuentes [phone] ) Visit Report/Discharge Packet Instructions: Low-density Lipoprotein Cholesterol, Total Cholesterol, The Mediterranean Diet and Good Health, High Cholesterol, DI for Atypical Chest Pain Discharge Data Primary Care Provider: Ani Schaefer Attending Provider: Bakari Turcios Admit Date/Time: 06/17/18 05:01 Discharges patient from system. Discharge Date/Time: 06/17/18 14:44 Quality VTE Deep Vein Thrombosis/Pulmonary Embolism Present on Admission: No
--- NOTE | 2018-06-17 17:09 | DI.NM.S_ITS ---
DATE OF SERVICE: 06/16/2018 PROCEDURE PERFORMED: Exercise stress only myocardial perfusion imaging study with gating to assess ejection fraction and regional wall motion. REFERRING PROVIDER: Rayna Banks DO INDICATIONS: The patient is a 77-year-old female admitted with atypical chest discomfort and exertional dyspnea. EXERCISE TREADMILL TESTING: The patient was able to exercise for a total of 5 minutes 23 seconds on a standard Steve protocol suggesting good exercise capacity with an KEISHA of -10%. She had normal heart rate and blood pressure achieving a maximum heart rate of 116 bpm (164% of her predicted maximum). She had no chest discomfort. Her resting ECG shows a right bundle- branch block but is otherwise normal, and there are no ischemic changes with stress. No arrhythmias were identified. At 4 minutes 15 seconds of exercise, at heart rate of 150 bpm, 27.4 mCi of technetium-99 Myoview was injected and the patient was imaged 20 minutes later using a gated SPECT acquisition protocol. Because of the normal stress perfusion images, it was felt that resting images were not needed. FINDINGS: 1. Raw Data: There is fairly good myocardial tracer uptake. The lung/heart ratio is normal at 0.35. 2. Quantitative Gated SPECT: Post stress ejection fraction is estimated at 86% without any focal wall motion abnormality. End-diastolic volume is normal at 59 mL. 3. Myocardial Perfusion Imaging: Post stress supine images shows a uniform pattern of tracer activity without any significant perfusion defects, supported by normal perfusion imaging in the prone position. CONCLUSION: 1. Normal myocardial perfusion study. 2. No evidence of myocardial ischemia or previous myocardial infarction. 3. High-normal left ventricular systolic function without any focal wall motion abnormality. 4. Good exercise capacity without angina or ECG evidence of ischemia. Ghanshyam Thomason - RS/sergio/ab doc#: [id number]/job#: [id number] dd: 06/17/2018 13:17:00 dt: 06/17/2018 16:55:00 DICTATING MD/COPIES TO: Varun Markham MD; Erma Banks DO; DESIRAE Headley COPIES MNE: COLIN POLLOCK
--- NOTE | 2018-08-06 08:59 | PC.NURSE ---
Per Beth ROSAS, pt recieved 1000ml NS via IV started 06/17/2018 at 0338 and completed on 06/17/2018 at 0520 with 1000ml infused.
== END 2018-06-17 14:44 | disposition home or self-care (01) ==
LOC: ED 03:57 → AC 05:02
PROVIDERS: Admitting Provider Nurse Practitioner Gerontology; Emergency Provider Emergency Medicine; PCP Physician Assistant; Visit Provider Nurse Practitioner Gerontology
DX: R06.02 Shortness of breath (principal); R07.89 Other chest pain; M79.605 Pain in left leg; R10.11 Right upper quadrant pain; E78.5 Hyperlipidemia, unspecified; F32.9 Major depressive disorder, single episode, unspecified; F41.9 Anxiety disorder, unspecified; F20.9 Schizophrenia, unspecified
CPT/HCPCS: 36415; 36591; 78451; 80053; 80061; 81003; 82550; 82553; 83036; 83690; 83735; 83880; 84484; 85025; 85379; 93005; 93016; 93017; 93018; 93971; 96360; 96361; 99283; 99285; G0378; A9502

== ENCOUNTER → 2018-09-17 11:35 | Outpatient (CLI) | payer MEDICARE, SELFPAY ==
[2018-09-17 12:38] LABS: Alanine Aminotransferase 29 IU/L (9-52); Albumin 4.2 g/dL (3.5-5.0); Albumin Globulin Ratio 1.7 (1.0-2.8); Alkaline Phosphatase 48 U/L (38-126); Aspartate Aminotransferase 23 IU/L (14-36); Bilirubin Total 1.1 mg/dL (0.2-1.3); Blood Urea Nitrogen 19 mg/dL (7-17); Calcium 9.7 mg/dL (8.4-10.2); Carbon Dioxide 28 mmol/L (22-32); Chloride 105 mmol/L (98-107); Cholesterol 213 mg/dL (140-199); Globulin 2.5 g/dL (1.7-4.1); Glucose 72 mg/dL (80-110); HDL Cholesterol 47 mg/dL (40-60); HEMOLYSIS < 15 (0-50); LDL Cholesterol Calculated 150 mg/dL (<100); Potassium 4.2 mmol/L (3.4-5.1); Sodium 140 mmol/L (137-145); Total Protein 6.7 g/dL (6.3-8.2); Triglycerides 81 mg/dL (35-150)
[2018-09-17 12:54] LABS: BUN Creatinine Ratio 31.7 (6-22); Estimated Glomerular Filt Rate > 60.0 mL/min (>60)
== END ==
PROVIDERS: PCP Physician Assistant; Visit Provider Physician Assistant
DX: E78.5 Hyperlipidemia, unspecified (principal)
CPT/HCPCS: 36415; 80053; 80061

== ENCOUNTER → 2019-05-25 19:33 | Outpatient (ROUT) | payer MEDICARE, SELFPAY ==
[2019-05-25 19:46] LABS: Add Manual Diff / Slide Review NO; Basophils Absolute Auto 100 /uL (0-100); Basophils Percent Auto 0.9 % (0-2); Eosinophils Absolute Auto 200 /uL (0-450); Eosinophils Percent Auto 2.1 % (2-4); Hematocrit 40.5 % (36-46); Hemoglobin 13.9 g/dL (12.0-16.0); Lymphocytes Absolute Auto 2100 /uL (1100-4500); Lymphocytes Percent Auto 25.6 % (25-40); Mean Corpuscular HGB Conc 34.4 % (30-36); Mean Corpuscular Volume 87.4 fL (80-100); Monocytes Absolute Auto 500 /uL (0-900); Monocytes Percent Auto 6.1 % (3-14); Neutrophils Absolute Auto 5200 /uL (1500-7000); Neutrophils Percent Auto 65.3 % (50-75); Platelet Count 258 X10^3/uL (150-400); Red Blood Cell Count 4.64 X10^6/uL (4.0-5.2); Red Cell Distribution Width 13.6 % (11.6-14.8)
[2019-05-25 19:52] LABS: Alanine Aminotransferase 35 IU/L (<35); Albumin Globulin Ratio 1.5 (1.0-2.8); Alkaline Phosphatase 52 U/L (38-126); Aspartate Aminotransferase 31 IU/L (14-36); BUN Creatinine Ratio 34.3 (6-22); Bilirubin Total 0.8 mg/dL (0.2-1.3); Blood Urea Nitrogen 24 mg/dL (7-17); Carbon Dioxide 24 mmol/L (22-32); Chloride 104 mmol/L (98-107); Cholesterol 196 mg/dL (140-199); Estimated Glomerular Filt Rate > 60.0 mL/min (>60); Globulin 2.6 g/dL (1.7-4.1); Glucose 104 mg/dL (80-110); HDL Cholesterol 38 mg/dL (40-60); HEMOLYSIS 16 (0-50); LDL Cholesterol Calculated 120 mg/dL (<100); Sodium 137 mmol/L (137-145); Total Protein 6.6 g/dL (6.3-8.2); Triglycerides 188 mg/dL (35-150)
== END ==
PROVIDERS: PCP Physician Assistant; Visit Provider Physician Assistant
DX: M81.0 Age-related osteoporosis without current pathological fracture (principal); K21.9 Gastro-esophageal reflux disease without esophagitis; E78.5 Hyperlipidemia, unspecified
CPT/HCPCS: 80053; 80061; 82306; 85025

== ENCOUNTER → 2019-05-31 12:59 | Outpatient (CLI) | payer MEDICARE, SELFPAY | PROVIDERS: PCP Physician Assistant; Referring Provider Physician Assistant; Visit Provider Physician Assistant | DX: M85.851 Other specified disorders of bone density and structure, right thigh (principal); Z78.0 Asymptomatic menopausal state; Z82.62 Family history of osteoporosis | CPT/HCPCS: 77080 ==

== ENCOUNTER → 2019-06-16 08:49 | Outpatient (CLI) | payer MEDICARE, SELFPAY ==
--- NOTE | 2019-06-16 | DI.RAD.S_ITS ---
PROCEDURE: XR CHEST 2V INDICATIONS: COUGH TECHNIQUE: 2 views of the chest were acquired. COMPARISON: [facility], CR, XR CHEST 2V, 06/16/2018, 16:09. FINDINGS: Surgical changes and devices: None. Lungs and pleura: Lungs are clear. Minimal blunting of the costophrenic angles bilaterally. Mild appearance of increased vascularity. Mediastinum: Mediastinal contours are normal. Heart size is enlarged. Bones and chest wall: No suspicious bony abnormalities. Soft tissues appear unremarkable. IMPRESSION: Minimal costophrenic angle blunting with cardiomegaly and increased vascularity suggestive of edema. Dictated by: Maryam Vargas M.D. on 06/16/2019 at 10:54 Approved by: Maryam Vargas M.D. on 06/16/2019 at 10:55
== END ==
PROVIDERS: PCP Physician Assistant; Referring Provider Internal Medicine; Visit Provider Physician Assistant
DX: R05 Cough (principal)
CPT/HCPCS: 71046

== ENCOUNTER → 2020-05-26 14:41 | Outpatient (ROUT) | payer MEDICARE, SELFPAY ==
[2020-05-26 14:48] LABS: Add Manual Diff / Slide Review NO; Basophils Absolute Auto 0 /uL (0-100); Basophils Percent Auto 0.4 % (0-2); Eosinophils Absolute Auto 100 /uL (0-450); Eosinophils Percent Auto 1.7 % (2-4); Hematocrit 44.2 % (36-46); Hemoglobin 14.2 g/dL (12.0-16.0); Lymphocytes Absolute Auto 1800 /uL (1100-4500); Lymphocytes Percent Auto 23.1 % (25-40); Mean Corpuscular HGB Conc 32.2 % (30-36); Mean Corpuscular Hemoglobin 28.5 PG (26-34); Mean Corpuscular Volume 88.7 fL (80-100); Monocytes Absolute Auto 500 /uL (0-900); Monocytes Percent Auto 6.7 % (3-14); Neutrophils Absolute Auto 5400 /uL (1500-7000); Neutrophils Percent Auto 68.1 % (50-75); Platelet Count 275 X10^3/uL (150-400); Red Blood Cell Count 4.99 X10^6/uL (4.0-5.2); Red Cell Distribution Width 14.1 % (11.6-14.8); White Blood Cell Count 7.9 X10^3/uL (4.5-11.0)
[2020-05-26 14:56] LABS: Alanine Aminotransferase 34 IU/L (<35); Albumin Globulin Ratio 1.3 (1.0-2.8); Alkaline Phosphatase 56 U/L (38-126); Aspartate Aminotransferase 33 IU/L (14-36); Bilirubin Total 0.9 mg/dL (0.2-1.3); Blood Urea Nitrogen 22 mg/dL (7-17); Carbon Dioxide 28 mmol/L (22-32); Chloride 108 mmol/L (98-107); Cholesterol 218 mg/dL (140-199); Estimated Glomerular Filt Rate > 60.0 mL/min (>60); Globulin 3.2 g/dL (1.7-4.1); Glucose 94 mg/dL (80-110); HDL Cholesterol 46 mg/dL (40-60); HEMOLYSIS < 15 (0-50); LDL Cholesterol Calculated 146 mg/dL (<100); Potassium 3.9 mmol/L (3.4-5.1); Sodium 139 mmol/L (137-145); Total Protein 7.2 g/dL (6.3-8.2); Triglycerides 128 mg/dL (35-150)
== END ==
PROVIDERS: PCP Physician Assistant; Visit Provider Physician Assistant
DX: Z00.00 Encounter for general adult medical examination without abnormal findings (principal); F32.5 Major depressive disorder, single episode, in full remission; E78.5 Hyperlipidemia, unspecified
CPT/HCPCS: 80053; 80061; 85025

== ENCOUNTER → 2020-07-19 10:07 | Outpatient (CLI) | payer OTHER, SELFPAY ==
[2020-07-19 10:58] LABS: COVID19 -Nasal RAPID Negative (Negative)
== END ==
PROVIDERS: PCP Physician Assistant; Visit Provider Surgery
DX: Z20.822 Contact with and (suspected) exposure to COVID-19 (principal)
CPT/HCPCS: 87635; C9803

== ENCOUNTER 2020-07-20 12:43 | Day surgery (SDC) | payer OTHER, SELFPAY ==
[2020-07-20] VITALS (7 sets, daily range): BP systolic 110–143; BP diastolic 66–87; PULSE 63–82; RESP 12–16; TEMP 34.7–37.4; O2SAT 93–98; BMI 24.3
[2020-07-20] MEDS: LACTATED RINGERS 1,000 ML 200 ML IV (13:31)
--- NOTE | 2020-07-20 13:49 | P.HP_ITS ---
History of Present Illness History of Present Illness Date Patient Seen: 07/20/20 Time Patient Seen: 13:49 Chief complaint: SCREENING COLONOSCOPY Narrative: The patient presents for colorectal sreening. She has had previous colonoscopy in perhaps 10 years ago she thinks it was notable for polyps. No personal or family history of colon cancer. On further history denies any recent gastrointestinal symptoms. No nausea, vomiting, abdominal pain, loss of appetite, unexplained weight loss, change in bowel habits, diarrhea, constipation, melena, hematochezia, or bright red blood per rectum. Patient History Family & Social History Social History: household members spouse Tobacco & Substance use: Smoking Status Never smoker alcohol intake never alcohol intake frequency 0-2 drinks per day Substance Use Type does not use Meds Home Medications and Allergies Home Medications Medication Instructions Recorded Confirmed Type cholecalciferol (vitamin D3) 5,000 u PO QDAY #0 01/01/11 07/20/20 History [Vitamin D3] ibuprofen 200 mg PO PRN #0 01/01/11 07/20/20 History vitamin E 400 unit PO DAILY #0 01/01/11 07/20/20 History ascorbic acid (vitamin C) [Vitamin 1,000 mg PO Q12H #0 01/08/11 07/20/20 History C] niacinamide [Niacin (niacinamide)] 500 mg PO QDAY #0 01/08/11 07/20/20 History calcium 1,000 mg PO DAILY 07/20/20 07/20/20 History Allergies Allergy/AdvReac Type Severity Reaction Status Date / Time No Known Drug Allergies Allergy Verified 07/20/20 12:58 Review of Systems Review of Systems ROS: Yes All systems reviewed with the patient and are negative except as otherwise documented Exam Vital Signs (past 8 hours): - 07/20/20 13:21 Temperature 97.1 F L Pulse Rate 63 Respiratory Rate 14 Blood Pressure 137/76 Pulse Oximetry 96 Oxygen Delivery Method Room Air Narrative Exam Narrative: General-no acute distress, elderly woman HEENT-moist mucous membranes, no scleral icterus Neck-supple, no lymphadenopathy Chest- non labored respirations, clear to auscultation bilaterally Cardiac-regular rate no peripheral edema Abdomen-soft, nontender nondistended Extremities-warm, well perfused Neurological-alert and oriented, no focal deficits Assessment & Plan Assessment & Plan narrative: The patient requires colorectal screening and colonoscopy is recommended. Technical details were discussed. Risks, benefits, alternatives explained. Risks including but not limited to myocardial infar ction, aspiration, bleeding, pain, missed lesion, incomplete examination, need for further radiographic studies, colonic perforation, and need for major abdominal surgery were discussed. All questions were answered to their satisfaction, and they are in agreement with this plan.
[2020-07-20] MEDS: MIDAZOLAM 5 MG/5 ML VIAL IV (14:15)
[2020-07-20] MEDS: fentaNYL 250 MCG/5 ML INJ IV (14:15)
--- NOTE | 2020-07-20 14:31 | P.OP.ENDO_ITS ---
Operative Date/Time/Diagnoses Date of procedure: 07/20/20 Time of procedure: 14:31 Pre-op diagnosis: Personal history of colonic polyps Post-op diagnosis: same Procedure & Clinicians Study performed: Colonoscopy Same procedure as scheduled: Yes Indications: [age] female personal history of colon polyps here for routine colonoscopy Surgeon: Elmer De Leon Procedure Notes Procedure in detail: Medications: Conscious sedation using 3mg IV midazolam and 250mcg IV of fentanyl The history and physical was performed/updated and the patient is ASA class is 2. The procedure was discussed in detail with the patient. Potential risks c omplications including infection, bleeding, missed diagnosis, perforation, need for surgery, and were explained. Their questions were answered and informed consent was obtained. Patient was brought to the procedure room and placed standard monitoring equipment. The patient's vital signs were monitored continuously throughout the entire procedure. Prior to starting time-out was performed. The patient was placed in the left lateral recumbent position. Procedural sedation was administered. Examination began with a thorough inspection of the perianal area there was no evidence of fissures, fistulae, external hemorrhoids or cutaneous malignancy. The colonoscopy scope was then placed into the anal canal and was advanced to the cecum, which was identified by the ileocecal valve, the appendiceal orifice and the confluence of the taenia. The scope was then slowly withdrawn examining colon thoroughly in all directions, irrigating it of any residual stool. No masses or polyps Sigmoid diverticulosis The patient tolerated the procedure well. They will be discharged once criteria are met. The prep was of good/excellent quality. The withdrawl time was 6 minutes. The sedation time was 29 minutes. Specimen(s): none sent Complications: none Impression: Normal colonoscopy Post-procedure Plan for aftercare: No need for further colonoscopy Disposition: same day surgery
--- NOTE | 2020-07-20 15:35 | SUR.PHASEII ---
Pt discharged in stable condition. Pt c/o abdominal cramping, not pain, upon arrival to the car. updated on status.
== END 2020-07-20 15:30 | disposition home or self-care (01) ==
PROVIDERS: PCP Physician Assistant; Referring Provider Surgery; Visit Provider Surgery
PROC: 0DJD8ZZ Inspection of Lower Intestinal Tract, Via Natural or Artificial Opening Endoscopic (ICD-10-PCS; CPT 45378; principal; 2020-07-20 13:45)
DX: Z12.11 Encounter for screening for malignant neoplasm of colon (principal); Z86.010 Personal history of colon polyps; K57.30 Diverticulosis of large intestine without perforation or abscess without bleeding
CPT/HCPCS: 45378; 99152; 99153; J2250; J3010

== ENCOUNTER → 2020-09-19 10:33 | Outpatient (CLI) | payer OTHER, SELFPAY ==
--- NOTE | 2020-09-19 10:34 | DI.MG.S_ITS ---
BILATERAL DIGITAL SCREENING MAMMOGRAM 3D/2D WITH CAD: 09/19/2020 CLINICAL: Routine screening. Family history of breast cancer. Comparison is made to exams dated: 09/16/2019 mammogram, 09/09/2018 mammogram, 09/03/2017 mammogram - [facility], 03/06/2015 mammogram, 07/08/2013 mammogram, and 08/02/2014 mammogram - [facility]. There are scattered fibroglandular elements in both breasts. Current study was also evaluated with a Computer Aided Detection (CAD) system. There are benign vascular calcifications in both breasts. There also is a biopsy clip in the right breast. No significant masses, calcifications, or other findings are seen in either breast. There has been no significant interval change. IMPRESSION: BENIGN There is no mammographic evidence of malignancy. A 1 year screening mammogram is recommended. This exam was interpreted at Station ID: [id number]. NOTE: For mammograms, a report in lay terms will be sent to the patient. Approximately 15% of breast malignancies will not be visualized mammographically. In the management of a palpable breast mass, a negative mammogram must not discourage biopsy of a clinically suspicious lesion. Electronically Signed By: Juan juarez/bull:09/19/2020 13:55:51 letter sent: Normal Exam ACR BI-RADS Category 2: Benign Finding(s) [id number]
== END ==
PROVIDERS: PCP Physician Assistant; Referring Provider Physician Assistant; Visit Provider Physician Assistant
DX: Z12.31 Encounter for screening mammogram for malignant neoplasm of breast (principal); Z80.3 Family history of malignant neoplasm of breast
CPT/HCPCS: 77063; 77067

== ENCOUNTER 2020-11-04 15:45 | Emergency (ER) | payer OTHER, SELFPAY ==
[2020-11-04 15:52] VITALS: BP 119/63; PULSE 74; RESP 18; TEMP 36.7; O2SAT 96; BMI 23.2
--- NOTE | 2020-11-04 17:14 | ED.LOWEXIN ---
HPI - Extremity Injury (Lower) General Chief Complaint: Extremity Injury, Lower Stated Complaint: Bum Knee, Swelling in Foot, Left Side Time Seen by Provider: 11/04/20 17:12 Source: patient Mode of arrival: Ambulatory Limitations: no limitations History of Present Illness HPI Narrative: Patient is a neli 80-year-old female who presents with his of left foot and knee swelling. She says the lactic blanket court 2 days ago. She has had increasing knee swelling and now foot swelling. As she is able to ambulate without any difficulty. The concern is that she just started having but swelling today and it is slightly erythematous on the lateral side. No fever or chills. She denies any injury to her foot. Other concern if the redness was due to infection. Related Data Home Medications Medication Instructions Recorded Confirmed cholecalciferol (vitamin D3) 25 5,000 u PO QDAY #0 01/01/11 07/20/20 mcg (1,000 unit) tablet (Vitamin D3) ibuprofen 200 mg capsule 200 mg PO PRN #0 01/01/11 07/20/20 vitamin E 400 unit capsule 400 unit PO DAILY #0 01/01/11 07/20/20 ascorbic acid (vitamin C) 1,000 mg 1,000 mg PO Q12H #0 01/08/11 07/20/20 tablet,extended release (Vitamin C ER) niacinamide 500 mg tablet (Niacin 500 mg PO QDAY #0 01/08/11 07/20/20 (niacinamide)) calcium 500 mg tablet 1,000 mg PO DAILY 07/20/20 07/20/20 Allergies Allergy/AdvReac Type Severity Reaction Status Date / Time No Known Drug Allergies Allergy Verified 11/04/20 15:52 Review of Systems Review of Systems Narrative: GENERAL: Denies chills,fever HEENT: Denies throat pain RESPIRATORY: Denies dyspnea, cough, wheezing CARDIOVASCULAR: Denies chest pain, palpitations GASTROINTESTINAL: Denies nausea, vomiting MUSCULOSKELETAL: See HPI SKIN: No rash, no laceration, no pruritus NEUROLOGIC: Denies weakness, dizziness, headache, numbness 8 point review of systems is negative except for those stated above and HPI Patient History Social History household members: spouse Smoking Status: Never smoker alcohol intake: never Smoking Status: Never smoker alcohol intake frequency: 0-2 drinks per day Substance Use Type: does not use Exam Initial Vital Signs Initial Vital Signs: Vital Signs Temperature 98.1 F 11/04/20 15:52 Pulse Rate 74 11/04/20 15:52 Respiratory Rate 18 11/04/20 15:52 Blood Pressure 119/63 11/04/20 15:52 Pulse Oximetry 96 11/04/20 15:52 GENERAL: Alert well-appearing 80-year-old female CARDIOVASCULAR: peripheral pulses in tact, cap refill <2 sec RESPIRATORY: No respiratory distress, speaks in full sentences without difficulty EXTREMITIES: Normal range of motion, no clubbing or edema. Neurovascularly intact Left lower extremity is swollen but no erythema she is able to flex and extend. Knee is stable. Left foot lateral side is now also swollen with toe swelling as well. Distal pedal pulse is felt strongly. Minimal erythema noted on the lateral foot. More likely related to the contusion rather than to infection. NEUROLOGICAL: Cranial nerves II through XII grossly intact. Normal gait and speech. SKIN: Warm, dry, no petechiae, no rashes or lesions. Course Vital Signs Vital signs: Vital Signs - 8 hr 11/04/20 15:52 Temperature 98.1 F Pulse Rate 74 Respiratory Rate 18 Blood Pressure 119/63 Pulse Oximetry 96 MDM - Extremity Injury (Lower) MDM Narrative Medical decision making narrative: Patient is ambulatory without any difficulty. She has very minimal amount of erythema on her left foot. Unlikely to be infectious at this time. She is afebrile no confusion. I told her to watch it very closely. We talked about elevating her leg and foot along with ice. She is ambulatory in the emergency department and left prior to her discharge instruction Discharge Plan Departure Patient Disposition: Home Clinical Impression: Swelling of joint of left knee Instructions: DI for Knee Sprain Activity Restrictions/Additional Instructions: *You have been diagnosed with left knee swelling left foot swelling *What to do: The swelling in the foot is likely from the knee. Please keep the leg elevated and ice 20-30 minutes at a time *Continue to take medications as directed Tylenol 650 mg every 4-6 hours needed for [id number] pain Ibuprofen 600 mg every 6 hours if needed for [id number] *Follow up with your primary care provider in 2-3 days *Return to ER if you should have any new, worsening or concerning symptoms Prescriptions: No Action cholecalciferol (vitamin D3) [Vitamin D3] 1,000 UNIT tablet 5,000 u PO QDAY Qty: 0 RF: 0 vitamin E 400 unit Capsule 400 unit PO DAILY Qty: 0 RF: 0 ibuprofen 200 MG capsule 200 mg PO PRN Qty: 0 RF: 0 Vitamin C 1,000 mg Tablet Extended Release 1,000 mg PO Q12H Qty: 0 RF: 0 niacinamide [Niacin (niacinamide)] 500 MG tablet 500 mg PO QDAY Qty: 0 RF: 0 calcium 500 mg Tablet 1,000 mg PO DAILY RF: 0 Referrals: Ani Schaefer PA-C [Primary Care Provider] -
== END 2020-11-04 17:30 | disposition home or self-care (01) ==
PROVIDERS: Emergency Provider Emergency Medicine; PCP Physician Assistant
DX: M25.462 Effusion, left knee (principal); M79.89 Other specified soft tissue disorders
CPT/HCPCS: 99281

== ENCOUNTER → 2020-11-15 14:27 | Outpatient (CLI) | payer OTHER, SELFPAY ==
--- NOTE | 2020-11-15 | DI.US.S_ITS ---
PROCEDURE: [facility] VENOUS LOW EXTREM LT INDICATIONS: TRAUMATIC HEMATOMA LEFT LOWER LEG TECHNIQUE: Real-time imaging, as well as color and pulse Doppler interrogation, were performed of the lower extremity deep veins from the inguinal ligament to the popliteal fossa. COMPARISON: [facility], , [facility] VENOUS LOW EXTREM LT, 06/17/2018, 8:13. FINDINGS: The common femoral, femoral and popliteal veins are normally compressible, and free of intraluminal thrombus. Color and pulse Doppler demonstrate normal phasic intraluminal flow. There is normal augmentation response to distal compression maneuver. At the area of the clinical bruise, there is a complex fluid collection seen, with minimal surrounding vascularity that measures 8.9 x 6 x 1 x 1.4 cm. Medial and lateral calf and ankle edema can be seen. IMPRESSION: Negative for deep venous thrombosis. Likely soft tissue hematoma seen at the area of clinical bruising. Lower extremity edema is seen. Dictated by: James Ruiz M.D. on 11/15/2020 at 14:44 Approved by: James Ruiz M.D. on 11/15/2020 at 14:45
== END ==
PROVIDERS: PCP Physician Assistant; Referring Provider Internal Medicine; Visit Provider Internal Medicine
DX: S80.12XA Contusion of left lower leg, initial encounter (principal); R60.0 Localized edema
CPT/HCPCS: 93971

== ENCOUNTER → 2020-11-27 15:22 | Outpatient (CLI) | payer OTHER, SELFPAY ==
--- NOTE | 2020-11-27 | DI.RAD.S_ITS ---
PROCEDURE: XR KNEE STANDING BI INDICATIONS: PAIN/SWELLING AFTER FALL TECHNIQUE: Standing upright view of the left and right knee were obtained. COMPARISON: [facility], CR, XR KNEE LT 1TO2V, 11/27/2020, 15:39. FINDINGS: Bones: No acute fractures or dislocations. Patellar alignment is normal on the sunrise view. No suspicious bony lesions. Joint spaces appear moderately narrowed medially and laterally bilaterally with weightbearing. Tricompartmental periarticular osteophyte formation. Soft tissues: Left knee medial soft tissue swelling. No suspicious soft tissue calcification. 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 Left knee medial soft tissue swelling. Dictated by: Nehemias Infante RR Interpreted: Yanick Tatum MD on 11/27/2020 at 16:23 Transcribed by: CARLY on 11/27/2020 at 16:24 Approved by: Yanick Tatum M.D. on 11/27/2020 at 17:22
--- NOTE | 2020-11-27 | DI.RAD.S_ITS ---
PROCEDURE: XR TIBIA FIBULA LT 2V INDICATIONS: PAIN/SWELLING AFTER FALL TECHNIQUE: 2 views of the tibia and fibula were acquired. COMPARISON: None. FINDINGS: Bones: No fractures or dislocations. No suspicious bony lesions. Soft tissues: No suspicious soft tissue calcifications or masses. IMPRESSION: No acute fracture. No osseous lesion. If clinical suspicion and/orsymptoms persist, further assessment with repeat plainfilms, or advanced imaging (e.g., CT, MRI, or bone scan) may be helpful for further assessment. Dictated by: Nehemias Infante [facility] Interpreted: Yanick aTtum MD on 11/27/2020 at 16:25 Transcribed by: CARLY on 11/27/2020 at 16:26 Approved by: Yanick Tatum M.D. on 11/27/2020 at 17:23
--- NOTE | 2020-11-27 | DI.RAD.S_ITS ---
PROCEDURE: XR KNEE LT 1TO2V INDICATIONS: PAIN/SWELLING AFTER FALL TECHNIQUE: 3 views of the knee were acquired. COMPARISON: [facility], CR, XR KNEE STANDING BI, 11/27/2020, 15:39. FINDINGS: Bones: No fractures or dislocations. No suspicious bony lesions. Soft tissues: Small joint effusion. No suspicious soft tissue calcifications. Soft tissue swelling along the medial soft tissues. IMPRESSION: Small knee joint effusion and medial soft tissue swelling. Dictated by: Nehemias Infante [facility] Interpreted: Yanick Tatum MD on 11/27/2020 at 16:17 Transcribed by: CARLY on 11/27/2020 at 16:18 Approved by: Yanick Tatum M.D. on 11/27/2020 at 17:22
== END ==
PROVIDERS: PCP Physician Assistant; Referring Provider Physician Assistant; Visit Provider Physician Assistant
DX: M25.562 Pain in left knee (principal); M79.89 Other specified soft tissue disorders; M25.462 Effusion, left knee
CPT/HCPCS: 73560; 73565; 73590

== ENCOUNTER 2021-03-12 19:26 | Inpatient (IN) | payer OTHER, SELFPAY ==
[2021-03-12] VITALS (16 sets, daily range): BP systolic 145–184; BP diastolic 73–89; PULSE 90–110; RESP 22–28; TEMP 37.9–39.3; O2SAT 92–97; BMI 24.7
--- NOTE | 2021-03-12 19:28 | DI.CT.S_ITS ---
PROCEDURE: CT STROKE INDICATIONS: trouble with speech, word salad TECHNIQUE: Noncontrast 4.5 mm thick angled axial sections acquired from the foramen magnum to the vertex, with coronal reformats. For radiation dose reduction, the following was used: automated exposure control, adjustment of mA and/or kV according to patient size. COMPARISON: None. FINDINGS: Image quality: Excellent. CSF spaces: Basal cisterns are patent. No extra-axial fluid collections. The ventricles are symmetric in size and shape. Brain: No intracranial bleeds or masses. There is cerebral volume loss for age, with resultant ventricular and sulcal prominence. There are periventricular and deep white matter chronic small vessel ischemic changes. There is intracranial internal carotid artery and vertebral artery atherosclerosis. Skull and face: Calvarium and visualized facial bones appear intact, without suspicious lesions. Sinuses: Visualized sinuses and mastoids are clear. IMPRESSION: No acute intracranial disease process. Findings discussed with Dr. Chase on March 12, 2020 7:51 p.m. This study fulfills neurological imaging criteria for inclusion or exclusion of acute stroke therapies based on available published neurological guidelines. Dictated by: Elsa Singer MD, PhD on 03/12/2021 at 19:46 Approved by: Elsa Singer MD, PhD on 03/12/2021 at 19:51
[2021-03-12 20:04] LABS: Add Manual Diff / Slide Review NO; Basophils Absolute Auto 0 /uL (0-100); Basophils Percent Auto 0.5 % (0-2); Eosinophils Absolute Auto 0 /uL (0-450); Hematocrit 42.3 % (36-46); Hemoglobin 14.3 g/dL (12.0-16.0); Lymphocytes Absolute Auto 900 /uL (1100-4500); Lymphocytes Percent Auto 15.3 % (25-40); Mean Corpuscular HGB Conc 33.8 % (30-36); Mean Corpuscular Hemoglobin 28.8 PG (26-34); Monocytes Absolute Auto 400 /uL (0-900); Monocytes Percent Auto 6.5 % (3-14); Neutrophils Absolute Auto 4500 /uL (1500-7000); Neutrophils Percent Auto 77.7 % (50-75); Platelet Count 150 X10^3/uL (150-400); Red Blood Cell Count 4.97 X10^6/uL (4.0-5.2); Red Cell Distribution Width 14.3 % (11.6-14.8); White Blood Cell Count 5.8 X10^3/uL (4.5-11.0)
[2021-03-12 20:13] LABS: Alanine Aminotransferase 31 IU/L (<35); Albumin 4.3 g/dL (3.5-5.0); Albumin Globulin Ratio 1.3 (1.0-2.8); Alkaline Phosphatase 62 U/L (38-126); Aspartate Aminotransferase 48 IU/L (14-36); BUN Creatinine Ratio 28.1 (6-22); Bilirubin Total 0.8 mg/dL (0.2-1.3); Blood Urea Nitrogen 18 mg/dL (7-17); Calcium 8.7 mg/dL (8.4-10.2); Carbon Dioxide 24 mmol/L (22-32); Chloride 106 mmol/L (98-107); Creatine Kinase 199 U/L (30-135); Estimated Glomerular Filt Rate > 60.0 mL/min (>60); Globulin 3.3 g/dL (1.7-4.1); Glucose 91 mg/dL (80-110); HEMOLYSIS < 15 (0-50); Potassium 3.3 mmol/L (3.4-5.1); Sodium 141 mmol/L (137-145); Total Protein 7.6 g/dL (6.3-8.2)
[2021-03-12 20:24] LABS: Troponin I < 0.012 ng/mL (0.01-0.034)
[2021-03-12 20:28] LABS: CKMB % Relative Index 0.9 % (1.5-5.0); Creatine Kinase MB 1.87 ng/mL (<2.37)
--- NOTE | 2021-03-12 20:41 | ED.AMS ---
HPI - Altered Mental Status General Chief Complaint: Fever Stated Complaint: Difficulty speaking for several days Time Seen by Provider: 03/12/21 19:28 Source: patient, family and EMS Mode of arrival: EMS History of Present Illness HPI narrative: 80-year-old female nonsmoker presents with her for evaluation of a few days of difficulty with speech, specifically trouble finding words. She denies any blurred vision, dizziness or extremity weakness. She did fall yesterday on her bottom and was able to get up. She has had a dry and hacking cough. She denies fever though she does have an elevated temperature here. She denies any significant shortness of breath, nausea or vomiting. Patient not activated as a code stroke as she is outside of any window for tPA and does not have significant lateralizing symptoms suggestive of a large vessel occlusion Related Data Home Medications Medication Instructions Recorded Confirmed cholecalciferol (vitamin D3) 25 5,000 u PO QDAY #0 01/01/11 07/20/20 mcg (1,000 unit) tablet (Vitamin D3) ibuprofen 200 mg capsule 200 mg PO PRN #0 01/01/11 07/20/20 vitamin E 400 unit capsule 400 unit PO DAILY #0 01/01/11 07/20/20 ascorbic acid (vitamin C) 1,000 mg 1,000 mg PO Q12H #0 01/08/11 07/20/20 tablet,extended release (Vitamin C ER) niacinamide 500 mg tablet (Niacin 500 mg PO QDAY #0 01/08/11 07/20/20 (niacinamide)) calcium 500 mg tablet 1,000 mg PO DAILY 07/20/20 07/20/20 Allergies Allergy/AdvReac Type Severity Reaction Status Date / Time No Known Drug Allergies Allergy Verified 11/04/20 15:52 Review of Systems Review of Systems Narrative: GENERAL: See HPI HEENT: Denies sinus pain, ear pain, sore throat, difficulty swallowing, dizziness. RESPIRATORY: Denies dyspnea, cough, wheezing, hemoptysis, sputum. CARDIOVASCULAR: Denies chest pain, palpitations, orthopnea, edema, GASTROINTESTINAL: Denies nausea, vomiting, abdominal pain, diarrhea, constipation, melena. : Denies dysuria, frequency, incontinence, hematuria, urinary retention. MUSCULOSKELETAL: denies weakness, joint pain, or bony pain SKIN: Denies rash, skin lesions, or other NEUROLOGIC: See HPI PSYCHIATRIC: No concerning psychosocial issues. 12 point review of systems is negative except for those stated above Patient History Social History household members: spouse Smoking Status: Never smoker alcohol intake: never Smoking Status: Never smoker alcohol intake frequency: 0-2 drinks per day Substance Use Type: does not use Exam Narrative Exam Narrative: GENERAL: [80] year old patient appears stated age. Well-developed patient, in mild distress. GCS 14, confused HEAD: Atraumatic. Normocephalic. EYES: Pupils equal round and reactive. Extraocular motions intact. No scleral icterus. No injection or drainage. ENT: Dry mucous member Nose without bleeding, purulent drainage. Throat without erythema, tonsillar hypertrophy or exudate. Airway patent. NECK: Trachea midline. Non tender CARDIOVASCULAR: Regular rate and rhythm without murmurs, gallops, or rubs. RESPIRATORY: Clear to auscultation. Breath sounds equal bilaterally. No wheezes, rales, or rhonchi. GASTROINTESTINAL: Abdomen soft, non-tender, nondistended. EXTREMITIES: No edema or joint tenderness. BACK: Nontender without deformity or crepitance. No flank tenderness. NEURO: Alert though confused about location and date.. Cranial nerves 2-12 grossly intact SKIN: No rash or erythema of visible areas Initial Vital Signs Initial Vital Signs: Vital Signs Temperature 100.2 F H 03/12/21 19:33 Pulse Rate 98 H 03/12/21 19:33 Respiratory Rate 22 03/12/21 19:33 Blood Pressure 160/78 H 03/12/21 19:33 Pulse Oximetry 97 03/12/21 19:33 Scores NIH Stroke Scale Level of Conciousness: Alert, keenly responsive Ask month/age: Answers one question correctly, intubated follow commands Open/close eyes, close hand: Performs both tasks correctly Best gaze horizontal: Normal Visual bowen: No visual loss Facial palsy: Normal symetrical movement Left arm drift: No drift for full 10 sec Right arm drift: No drift for full 10 sec Left leg drift: No drift for full 5 sec Right leg drift: No drift for full 5 sec Limb ataxia: Absent Sensory on face/arms/legs: Normal, no sensory loss Best language: Mild to moderate, slurs some words Dysarthria: Normal Extinction or inattention: No abnormality Total NIH Stroke scale score: 2 Course Orders Ordered: ED Orders 03/12/21 19:28 CT Stroke Stat EKG-12 Lead Stat 03/12/21 19:58 Complete Blood Count AUTO DIFF Stat Comprehensive Metabolic Panel Stat Troponin & CK Cardiac Panel Stat 03/12/21 20:00 COVID19 - ADMIT (AUDIO [employer]IS[employer] ENGINEER swab/PCR) Stat 03/12/21 20:47 XR chest 1V Stat 03/12/21 20:51 Blood Culture Stat 03/12/21 21:00 Urine Culture Stat Urine Drug Screen, Rapid Stat Urine Microscopic Stat 03/12/21 21:01 Lactate (Lactic Acid) Stat Acetaminophen (Acetaminophen 325 Mg Tablet) 650 mg PO NOW ONE Stop: 03/12/21 23:06 Sodium Chloride (Normal Saline 0.9%) 1,000 mls @ 150 mls/hr IV CONT GRETTA Last Infusion: 03/12/21 22:29 Dose: 0 mls/hr Documented by: Admin: 03/12/21 21:26 Dose: 150 mls/hr Documented by: JONATHAN Discontinued Medications Ceftriaxone Sodium 1,000 mg/ (Sodium Chloride) 100 mls @ 200 mls/hr IV NOW ONE Stop: 03/12/21 22:13 Last Infusion: 03/12/21 22:29 Dose: 0 mls/hr Documented by: Admin: 03/12/21 22:28 Dose: 200 mls/hr Documented by: JONATHAN Vital Signs Vital signs: Vital Signs - 8 hr 03/12/21 19:33 03/12/21 19:42 03/12/21 20:00 Temperature 100.2 F H Pulse Rate 98 H 95 H 90 Respiratory Rate 22 Blood Pressure 160/78 H Pulse Oximetry 97 93 93 03/12/21 20:34 03/12/21 20:47 03/12/21 21:00 Temperature Pulse Rate 94 H 94 H 96 H Respiratory Rate Blood Pressure 172/80 H 172/77 H Pulse Oximetry 95 94 94 03/12/21 21:20 03/12/21 21:21 03/12/21 21:30 Temperature Pulse Rate 110 H 104 H 100 H Respiratory Rate 28 H 26 H Blood Pressure 176/82 H 173/81 H Pulse Oximetry 94 92 94 03/12/21 21:31 03/12/21 22:00 03/12/21 22:17 Temperature 102.6 F H Pulse Rate 107 H 107 H Respiratory Rate 24 24 Blood Pressure 183/89 H 184/86 H Pulse Oximetry 92 MDM - Altered Mental Status Lab Data Result diagrams: 03/12/21 19:58 03/12/21 19:58 Labs: Lab Results 03/12/21 03/12/21 03/12/21 Range/Units 19:58 19:58 20:00 WBC 5.8 (4.5-11.0) X10^3/uL RBC 4.97 (4.0-5.2) X10^6/uL Hgb 14.3 (12.0-16.0) g/dL Hct 42.3 (36-46) % MCV 85.0 (80-100) fL MCH 28.8 (26-34) PG MCHC 33.8 (30-36) % RDW 14.3 (11.6-14.8) % Plt Count 150 (150-400) X10^3/uL Neut % (Auto) 77.7 H (50-75) % Lymph % (Auto) 15.3 L (25-40) % [place] % (Auto) 6.5 (3-14) % Eos % (Auto) 0.0 L (2-4) % Baso % (Auto) 0.5 (0-2) % Neut # (Auto) 4500 (4557-9280) /uL Lymph # (Auto) 900 L (6258-1174) /uL [place] # (Auto) 400 (0-900) /uL Eos # (Auto) 0 (0-450) /uL Baso # (Auto) 0 (0-100) /uL Sodium 141 (137-145) mmol/L Potassium 3.3 L (3.4-5.1) mmol/L Chloride 106 (98-107) mmol/L Carbon Dioxide 24 (22-32) mmol/L BUN 18 H (7-17) mg/dL Creatinine 0.64 (0.52-1.04) mg/dL Estimated GFR > 60.0 (>60) mL/min BUN/Creatinine Ratio 28.1 H (6-22) Glucose 91 (80-110) mg/dL Lactate (0.7-2.1) mmol/L Calcium 8.7 (8.4-10.2) mg/dL Total Bilirubin 0.8 (0.2-1.3) mg/dL AST 48 H (14-36) IU/L ALT 31 (<35) IU/L Alkaline Phosphatase 62 (38-126) U/L Total Creatine Kinase 199 H (30-135) U/L CK-MB (CK-2) 1.87 (<2.37) ng/mL CK-MB (CK-2) Rel Index 0.9 L (1.5-5.0) % Troponin I < 0.012 (0.01-0.034) ng/mL Total Protein 7.6 (6.3-8.2) g/dL Albumin 4.3 (3.5-5.0) g/dL Globulin 3.3 (1.7-4.1) g/dL Albumin/Globulin Ratio 1.3 (1.0-2.8) Urine RBC (0-5/HPF) Urine WBC (0-5/HPF) Ur Squamous Epith Cells (0-5/HPF) Urine Bacteria (None) Ur Culture Indicated? U Opiates 300ng/mL cut (Negative) Ur Oxycodone Screen (Negative) Urine Methadone Screen (Negative) Ur Barbiturates Screen (Negative) U Tricyclic Antidepress (Negative) Ur Phencyclidine Scrn (Negative) Ur Amphetamines Screen (Negative) U Methamphetamines Scrn (Negative) Ur MDMA Scrn (Ecstasy) (Negative) U Benzodiazepines Scrn (Negative) Urine Cocaine Screen (Negative) U Marijuana (THC) Screen (Negative) SARS-CoV-2 (PCR) Positive H (Negative) 03/12/21 03/12/21 03/12/21 Range/Units 21:00 21:00 21:01 WBC (4.5-11.0) X10^3/uL RBC (4.0-5.2) X10^6/uL Hgb (12.0-16.0) g/dL Hct (36-46) % MCV (80-100) fL MCH (26-34) PG MCHC (30-36) % RDW (11.6-14.8) % Plt Count (150-400) X10^3/uL Neut % (Auto) (50-75) % Lymph % (Auto) (25-40) % [place] % (Auto) (3-14) % Eos % (Auto) (2-4) % Baso % (Auto) (0-2) % Neut # (Auto) (6559-0933) /uL Lymph # (Auto) (4609-7823) /uL [place] # (Auto) (0-900) /uL Eos # (Auto) (0-450) /uL Baso # (Auto) (0-100) /uL Sodium (137-145) mmol/L Potassium (3.4-5.1) mmol/L Chloride (98-107) mmol/L Carbon Dioxide (22-32) mmol/L BUN (7-17) mg/dL Creatinine (0.52-1.04) mg/dL Estimated GFR (>60) mL/min BUN/Creatinine Ratio (6-22) Glucose (80-110) mg/dL Lactate 1.1 (0.7-2.1) mmol/L Calcium (8.4-10.2) mg/dL Total Bilirubin (0.2-1.3) mg/dL AST (14-36) IU/L ALT (<35) IU/L Alkaline Phosphatase (38-126) U/L Total Creatine Kinase (30-135) U/L CK-MB (CK-2) (<2.37) ng/mL CK-MB (CK-2) Rel Index (1.5-5.0) % Troponin I (0.01-0.034) ng/mL Total Protein (6.3-8.2) g/dL Albumin (3.5-5.0) g/dL Globulin (1.7-4.1) g/dL Albumin/Globulin Ratio (1.0-2.8) Urine RBC 0-1/hpf (0-5/HPF) Urine WBC 1-5/hpf (0-5/HPF) Ur Squamous Epith Cells 0-1 /hpf (0-5/HPF) Urine Bacteria Many (>30) H (None) Ur Culture Indicated? Culture not indicate U Opiates 300ng/mL cut Negative (Negative) Ur Oxycodone Screen Negative (Negative) Urine Methadone Screen Negative (Negative) Ur Barbiturates Screen Negative (Negative) U Tricyclic Antidepress Negative (Negative) Ur Phencyclidine Scrn Negative (Negative) Ur Amphetamines Screen Negative (Negative) U Methamphetamines Scrn Negative (Negative) Ur MDMA Scrn (Ecstasy) Negative (Negative) U Benzodiazepines Scrn Negative (Negative) Urine Cocaine Screen Negative (Negative) U Marijuana (THC) Screen Negative (Negative) SARS-CoV-2 (PCR) (Negative) Urine Dip Bedside Urine Glucose Negative Bedside Urine Bilirubin - Negative Bedside Urine Ketone +++ 80 Urine Specific [place] 1.025 Bedside Urine Occult Blood +/- Bedside Urine pH 6.0 Bedside Urine Protein - Negative Bedside Urine Urobilinogen - Negative Bedside Urine Nitrite - Negative Bedside Urine Leukocytes - Negative Esterase Discharge Plan Departure Patient Disposition: Admitted As Inpatient Clinical Impression: COVID-19, Stroke Admit Date/Time: 03/12/21 22:18 Admit Provider: Edelmira Escobar
--- NOTE | 2021-03-12 20:47 | DI.RAD.S_ITS ---
PROCEDURE: XR CHEST 1V INDICATIONS: cough, fever, confusion TECHNIQUE: One view of the chest was acquired. COMPARISON: None. FINDINGS: Surgical changes and devices: None. Lungs and pleura: Patchy airspace opacities noted in the left lung. No pleural effusions or pneumothorax. Mediastinum: Mediastinal contours appear normal. Heart size is normal. Bones and chest wall: No suspicious bony lesions. Overlying soft tissues appear unremarkable. IMPRESSION: Left-sided pneumonia. Dictated by: Elsa Singer MD, PhD on 03/12/2021 at 21:18 Approved by: Elsa Singer MD, PhD on 03/12/2021 at 21:18
[2021-03-12 20:56] LABS: COVID19 - ADMIT (NP swab/PCR) POSITIVE (Negative)
[2021-03-12] MEDS: SODIUM CHLORIDE 0.9% 1,000 ML 150 ML IV (21:26)
[2021-03-12 21:33] LABS: Lactate (Lactic Acid) 1.1 mmol/L (0.7-2.1)
[2021-03-12 22:12] LABS: UR Morphine/Opiate cutoff 300 Negative (Negative); Ur Creatinine Normal (Normal); Ur Specific Gravity Normal (Normal); Urine Amphetamines Negative (Negative); Urine Barbiturates Negative (Negative); Urine Benzodiazepines Negative (Negative); Urine Cocaine Negative (Negative); Urine MDMA Negative (Negative); Urine Methadone Negative (Negative); Urine Methamphetamines Negative (Negative); Urine Oxycodone Negative (Negative); Urine Phencyclidine Negative (Negative); Urine Tetrahydrocannabinol Negative (Negative); Urine Tricyclic Antidepressant Negative (Negative); Urine pH Normal (Normal)
[2021-03-12 22:18] LABS: Bacteria Urine Many (>30); Squamous Epithelial Cell Urine 0-1 /HPF (0-5/HPF); WBC Urine 1-5/HPF (0-5/HPF)
[2021-03-12 22:19] LABS: RBC Urine 0-1/HPF (0-5/HPF)
[2021-03-12] MEDS: cefTRIAXone 1,000 MG in SODIUM CHLORIDE 0.9% 100 ML 200 ML IV (22:28)
[2021-03-12] MEDS: ACETAMINOPHEN 325 MG TABLET 650 MG PO (23:23)
[2021-03-12 23:39] LABS: Hemoglobin A1C% w Est Avg Glu 5.7 % (4.0-6.0)
[2021-03-13] VITALS (7 sets, daily range): BP systolic 122–141; BP diastolic 58–70; PULSE 65–94; RESP 15–30; TEMP 36.3–37.6; O2SAT 92–96
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
[2021-03-13 00:55] LABS: Thyroid Stimulating Hormone 2.11 uIU/mL (0.47-4.68)
[2021-03-13] MEDS: AZITHROMYCIN 500 MG in DEXTROSE 5% IN WATER 250 ML IV (01:20)
[2021-03-13] MEDS: DEXAMETHASONE 10 MG/ML VIAL 6 MG IV ×2 (01:23→09:20)
[2021-03-13] MEDS: BARICITINIB 2 MG TABLET 4 MG PO ×2 (01:24→09:19)
[2021-03-13] MEDS: REMDESIVIR 200 MG in SODIUM CHLORIDE 0.9% 210 ML 250 ML IV (02:44)
[2021-03-13 07:00] LABS: BUN Creatinine Ratio 22.2 (6-22); Blood Urea Nitrogen 12 mg/dL (7-17); Calcium 7.9 mg/dL (8.4-10.2); Carbon Dioxide 23 mmol/L (22-32); Chloride 107 mmol/L (98-107); Creatine Kinase 185 U/L (30-135); Estimated Glomerular Filt Rate > 60.0 mL/min (>60); Glucose 120 mg/dL (80-110); HEMOLYSIS < 15 (0-50); Lactate Dehydrogenase 639 U/L (313-618); Magnesium 2.3 mg/dL (1.6-2.3); Potassium 2.9 mmol/L (3.4-5.1); Sodium 140 mmol/L (137-145)
[2021-03-13 07:56] LABS: Add Manual Diff / Slide Review NO; Basophils Absolute Auto 0 /uL (0-100); Basophils Percent Auto 0.1 % (0-2); Eosinophils Absolute Auto 0 /uL (0-450); Hematocrit 38.7 % (36-46); Hemoglobin 13.2 g/dL (12.0-16.0); Lymphocytes Absolute Auto 900 /uL (1100-4500); Lymphocytes Percent Auto 20.6 % (25-40); Mean Corpuscular Hemoglobin 28.8 PG (26-34); Mean Corpuscular Volume 84.8 fL (80-100); Monocytes Absolute Auto 200 /uL (0-900); Monocytes Percent Auto 5.6 % (3-14); Neutrophils Absolute Auto 3300 /uL (1500-7000); Neutrophils Percent Auto 73.7 % (50-75); Platelet Count 143 X10^3/uL (150-400); Red Blood Cell Count 4.57 X10^6/uL (4.0-5.2); Red Cell Distribution Width 14.2 % (11.6-14.8); White Blood Cell Count 4.4 X10^3/uL (4.5-11.0)
--- NOTE | 2021-03-13 09:00 | DI.MRI.S_ITS ---
PROCEDURE: MR STROKE Pre- and post-contrast brain MRI, non-contrast brain MR angiogram, pre- and postcontrast neck MR angiogram INDICATIONS: aphasia, r/o cva TECHNIQUE: Brain: Noncontrast axial T1 spin echo, axial T2 fast spin echo, sagittal and axial FLAIR, coronal T2 fast spin echo, axial gradient echo, axial diffusion and ADC through the brain. After the administration of contrast, axial 3D VIBE of the cranial vasculature and brain. Brain MRA: Non-contrast 3-D time of flight MR angiogram, with multiple pvlkgpr-yqippkznn-uspjzhfzif (MIP) reformats performed. Neck MRA: Axial and sagittal TruFISP through the neck. Coronal dynamic MR angiogram during administration of contrast in the arterial and venous phases, with 3-dimenstional yqpwgvb-moyjteczl-vftnjwitvj (MIP) reformats constructed from subtraction images. COMPARISON: [facility], CT, CT STROKE, 03/12/2021, 19:35. FINDINGS: Image quality: Excellent. BRAIN: CSF spaces: Ventricles are normal in size and shape. Basal cisterns are patent. No extra-axial fluid collections. Brain: Moderate atrophy and multifocal white matter chronic ischemic change present. There is a tiny 2 mm focus of restricted diffusion noted in the left superior frontal gyrus anteriorly and right inferior frontal gyrus laterally. No abnormal intracranial enhancement. No evidence of mass effect or midline shift. No acute hemorrhage. Skull and face: Calvarial marrow signal is normal. Orbits appear normal. Sinuses: Sinuses and mastoids are clear. BRAIN MR ANGIOGRAM: Anterior circulation: Intracranial internal carotid arteries are normal in size and enhancement. The flow within the paired anterior cerebral arteries is normal and symmetric. The flow within the middle cerebral arteries is normal and symmetric. The anterior communicating artery is seen. No stenoses, occlusions, or aneurysms. 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 Posterior circulation: The visualized portions of the vertebral arteries demonstrate normal caliber, and join to form a normal appearing basilar artery. The flow within the posterior cerebral arteries is normal and symmetric. No stenoses, occlusions, or aneurysms. NECK MR ANGIOGRAM: Carotids: Great vessels demonstrate a conventional anatomy as they arise from the aortic arch. The origins of the common carotid arteries appear patent. The calibers and courses of both common carotid arteries are normal. The bifurcation regions appear normal bilaterally. The internal carotid arteries demonstrate normal course and caliber. Posterior circulation: The origins of the vertebral arteries appear patent. More superior portions of both vertebral arteries demonstrate normal course and caliber, and join to form a normal appearing basilar artery. The origin of the right vertebral artery is not well demonstrated. Miscellaneous: Subclavian arteries appear patent. Pre-contrast images through the neck show no soft tissue abnormalities. IMPRESSION: 1. There are 2 separate acute to subacute lacunar infarcts noted in the left and right frontal cortex measuring 2 mm each. 2. Moderate cerebral and cerebellar atrophy and white matter chronic ischemic change. 3. No evidence of large vessel occlusion, aneurysm or vascular malformation noted in the head and neck. Approved by: Claudio Figueredo M.D. on 03/13/2021 at 10:35
[2021-03-13] MEDS: POTASSIUM CHLORIDE IN WATER 10 MEQ/100 ML PIGGYBACK 100 MEQ IV (09:19)
[2021-03-13] MEDS: CLOPIDOGREL 75 MG TABLET PO (09:20)
[2021-03-13] MEDS: ASPIRIN EC 81 MG TABLET PO (09:20)
[2021-03-13] MEDS: POTASSIUM CHLORIDE 20 MEQ TAB 40 MEQ PO ×2 (09:21→13:32)
--- NOTE | 2021-03-13 10:00 | DI.ECHO.S_ITS ---
[facility] +---------+ [facility] +---------+ : : [address] : : : : [id number] : : : : Phone: [phone]+ Echocardiogram Report + + :Name: PIERCE LIU Study Date: 03/13/2021 Height: 62.5 in: [facility] ReadingLocation: Weight: 135 lb : : Gender: Female BSA: 1.6 m2 : :: 1940 Age: 80 yrs BP: 113/55 mmHg: :Reason For Study: APHASIA x 3DAYS, CVA : :Ordering Physician: Sylvia BOWSERformed By: Stefany Awan : :Referring: DANNY BOWSER : + + Interpretation Summary The ejection fraction is estimated to be 55-60%. Normal diastolic function. The right ventricle is mildly dilated. The right ventricular systolic function is normal. Injection of contrast documented no interatrial shunt. There is mild mitral regurgitation. There is mild aortic regurgitation. Pulmonary artery pressures cannot be estimated. Procedure: A two-dimensional transthoracic echocardiogram with color flow and Doppler was performed. The study quality was technically adequate. A saline contrast injection was performed to assess for cardiac shunting. There is no prior echocardiogram noted for this patient. The heart rate ranged between 58-70 bpm during the study. Left Ventricle: The left ventricle is normal in size and wall thickness. The ejection fraction is estimated to be 55-60%. Diastolic parameters suggest probable normal left ventricular diastolic function and normal filling pressures. Right Ventricle: The right ventricle is mildly dilated. The right ventricular systolic function is normal. Atria: The left atrial size is normal. Right atrial size is normal. There is no Doppler evidence for an interatrial shunt. Injection of contrast documented no interatrial shunt. Mitral Valve: The mitral valve is normal in structure and function. There is mild mitral annular calcification. There is mild mitral regurgitation. Aortic Valve: The aortic valve is trileaflet. The aortic valve opens well. The aortic valve is mildly calcified. There is no aortic valve stenosis. There is mild aortic regurgitation. Tricuspid Valve: The tricuspid valve is normal in structure and function. There is trace tricuspid regurgitation. Pulmonary artery pressures cannot be estimated because of the lack of a measurable TR jet velocity. Pulmonic Valve: The pulmonic valve leaflets are thin and pliable; valve motion is normal. There is trace pulmonic regurgitation. Great Vessels: The aortic root is normal size. The dimensions of the ascending aorta are normal. The IVC is of normal diameter and collapses greater than 50% with a sniff. This suggests a low right atrial pressure of 3 mm Hg. Pericardium/ Pleura There is a trivial to small pericardial effusion noted. There is no pleural effusion. MMode/2D Measurements & Calculations LVIDd: 4.4 cm LVOT diam: 2.1 cm LVIDs: 3.2 cm Ao root diam: 2.8 cm FS: 27.0 % asc Aorta Diam: 3.5 cm IVSd: 0.74 cm LVPWd: 0.62 cm LV santillan. diameter/BSA (cm/m^2): 2.7 LV sys. diameter/BSA (cm/m^2): 2.0 LA A2 area: 16.3 cm2 RA long axis: 4.5 cm LA A4 area: 15.6 cm2 RA area: 13.7 cm2 LA length (vol): 4.4 cm RA vol: 35.7 ml LA vol: 49.0 ml RA : 22.0 ml/m2 LA vol index: 30.1 ml/m2 IVC diam: 1.4 cm RVD1 (basal): 3.5 cm TAPSE: 1.7 cm Doppler Measurements & Calculations Ao V2 max: 96.7 cm/sec LVOT Max Kanu: 89.7 cm/sec Ao V2 mean: 62.5 cm/sec LV V1 max P.2 mmHg Ao max P.7 mmHg LV V1 VTI: 20.3 cm Ao mean P.8 mmHg PAPITO(I,D): 3.6 cm2 Ao V2 VTI: 19.0 cm PAPITO(V,D): 3.1 cm2 sev ratio: 1.1 PAPITO indexed to BSA (cm^2/m^2): 2.2 MV E max kanu: 75.5 cm/sec PA V2 max: 65.9 cm/sec MV A max kanu: 82.2 cm/sec PA V2 mean: 44.1 cm/sec MV E/A: 0.92 PA mean P.89 mmHg Med Peak E' Kanu: 5.9 cm/sec PA pr(Accel): 0.22 mmHg E/E' med: 12.8 Lat Peak E' Kanu: 6.7 cm/sec E/E' lat: 11.3 E/e' average: 12.1 MV dec time: 0.15 sec [facility] 67.6 ml Reading Physician:02:56 PM
--- NOTE | 2021-03-13 10:11 | ST.IPIE ---
Visit Care Team Role Provider Type Ani Schaefer PA-C Primary Care Provider Non-Staff Specialty: Internal Medicine Address: [address] [place] [address], [address] Email: [email or web address] Pérez Chase DO Emergency Provider Physician Referring Provider Specialty: Emergency Medicine Address: [address] [place] [address], [id number] Email: [email or web address] DESIRAE Jade Admit Provider Physician Attending Provider Specialty: Internal Medicine Address: [address] [place] [address], [address] Email: [email or web address] Past Medical History (Last Reviewed 03/13/21 @ 00:27 by DESIRAE Jade) History of hip replacement (Medical) ST Initial Evaluation Report [employer]ING [employer] Adult Cognitive Linguistic Eval Start: 03/13/21 09:57 Freq: Status: Active Protocol: Document 03/13/21 09:58 ANDRESSA (Rec: 03/13/21 10:10 ANDRESSA [id number]) Adult Cognitive Linguistic Evaluation Session Time Visit Start Time 09:30 Visit Stop Time 09:50 Total Visit Minutes 20 Setting Assessment Location Acute Care Visit Type Note Type Initial evaluation Patient Information Identification Type Name,Wristband Medical History Ghanshyam Govea is an 80 year female with no particular medical history who presents with her and a chief complaint of confusion and difficulty speaking. She is COVID positive. Patient is confused and unable to provide a history or a meaningful review of systems, history was obtained from the by phone at home. He does state that about a week ago she developed what he called ? brain fog?. She would sometimes say things that did not make any sense or would actually have garbled speech. He states that worsened yesterday. Patient presented with confusion, word finding difficulty, and slowed, mildly slurred, and soft speech. She was alert and oriented x3. Language(s) Spoken in the Home [place] Subjective Location Lower Back Mental Status Alert,Responsive,Cooperative Assessment Results Informal oral mechanism completed. Features were symmetrical at rest and in motion. ROM and strength appeared WNL for the purposes of speech and swallowing. Speech was clear, no word finding difficulty reported or observed, no slurring or soft speech. Observed Ghanshyam take her pills with water through a straw cup. She tilted her head back when swallowing, however corrected this behavior when given feedback to tilt her head forward instead. No anterior spillage, residue, or overt signs/ symptoms of aspiration observed. Ghanshyam reported no difficulty with eating or drinking. Informal Assessment Receptive Language Normal Yes Expressive Language Normal Yes Pragmatic Language Normal Yes Speech Normal Yes Cognition Normal Yes Formal Assessment Results Informal assessment of cognition completed. Ghanshyam observed during interaction with nurse and doctor. She answered questions appropriately, recalled events clearly, and demonstrated no confusion during interactions. Ghanshyam answered orientation questions x3. She tracked information and conversations with different individuals well and exhibited excellent pragmatic skills navigating conversations with 3 different individuals. Findings/Results Language Function Within normal limits Cognitive Function Within normal limits Findings Ghanshyam presents with cognition, language, speech, and swallowing WNL. She reported she is back to normal and is not experiencing difficulty with word finding, speech, swallowing, or cognition at this time. Speech therapy is not recommended at this time. Plan of Care Speech-Language Treatment No Patient/Caregiver Education Described results of evaluation,Patient expressed understanding of evaluation, Patient expressed agreement with goals and treatment plans Discharge Recommendations Home
--- NOTE | 2021-03-13 16:35 | PT.IIE ---
Surgical History (Last Reviewed 03/13/21 @ 00:27 by DESIRAE Jade) Laceration of right calf Physical Therapy Inpatient Evaluation/Re-Eval M1 PT/OT-IP Prior Functional Status Start: 03/13/21 15:41 Freq: NEEDED Status: Active Protocol: Document 03/13/21 16:35 AW (Rec: 03/13/21 17:06 AW [id number]) Medical Review Prior Functional Status Medical History Reviewed Yes Communication Pt is able to make her needs known. Mobility and Gait Pt is independent with all mobility at home. She typically uses no AD. She fell recently and hurt her tailbone; she found using a cane helpful after her fall. Activities of Daily Living and IADL's Independent with all ADL's and IADL's. 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 Prior Functional Level (Other details) Pt has had several injurious falls over the years - including one that resulted in hip fracture - but she states she has fallen just once in the past year. Social History Household Members spouse Living Arrangements House Number of Floors (Floors) One Floor Number of Stairs To Enter/Railing? 3 BEATRICE at the front door with left rail ascending Home Environment Walk in Shower,Built-In Shower Seat Home Equipment Front Wheel Walker,Straight Cane,Hand Held Shower,Grab Bars In Shower Additional Social History Comment Pt lives with her spouse, Aydin, who will be available and able to provide assist when pt goes home. M2 PT-IP Current Condition Start: 03/13/21 15:41 Freq: NEEDED Status: Active Protocol: Document 03/13/21 16:35 AW (Rec: 03/13/21 17:06 AW [id number]) Physical Therapy Current Condition Current Condition Evaluation Date 03/13/21 Treatment Diagnosis CVA; COVID (+); impaired mobility and gait Onset Date 03/12/21 M3 PT-IP Subjective Start: 03/13/21 15:41 Freq: NEEDED Status: Active Protocol: Document 03/13/21 16:35 AW (Rec: 03/13/21 17:06 AW [id number]) Subjective Physical Therapy Visit Type Type Initial Evaluation Visit Start Time 16:00 Visit Stop Time 16:35 Total Visit Minutes 35 Number of SAP MOBILITY ARCHITECT Visits 0 Physical Therapy Visit Comments Patient Comments Pt is willing to participate with PT Patient Goals Return home with spouse support Therapy Pain Assessment Pain When Pain Assessed During Mobility Pain Present Pain Present Pain Reported Location Posterior Sacrum Scale Used not quantified Pain Behaviors Wincing Pain Management Techniques Re-positioning M4 PT-IP Mobility and Gait Start: 03/13/21 15:41 Freq: NEEDED Status: Active Protocol: Document 03/13/21 16:35 AW (Rec: 03/13/21 17:06 AW [id number]) PT-Bed Mobility Assessment Supine to Sit Supine to Sit Standby Assistance Scooting Scooting to Edge of Bed Standby Assistance PT-Transfer Assessment Sit to and From Stand Sit to and from Stand Standby Assistance,Use of Upper Extremities Equipment Transfer Assistive Device Gait Belt,Front Wheeled Walker Orthotic/Prosthetic Devices or Brace: No Transfers Transfer Destination Chair Transfer Technique amb with FWW Transfer Ability Level of Assist Standby Assistance Comments Mobility Comments Pt was lying in bed as PT arrived. BP 121/58 HR 71 SpO2 95% on room air. She sat up EOB with increased effort and time but with only SBA. Pt states her bed at home is not as soft as the hospital bed. She stood from the bed SBA and used FWW to ambulate around the foot of the bed to the chair. SpO2 was stable 95%. Pt stood again and ambulated around the room with FWW three laps for a total of 100 feet SBA. SpO2 dropped briefly to 92% on room air but quickly recovered. Pt was left in the chair with call light and tray table in reach. Gait Assessment Gait Gait Assistance Required: Standby Assistance Distance (Feet) 100 Assistive Devices Assistive Device Gait Belt,Front Wheeled Walker Orthotic/Prosthetic Devices or Brace: No Gait Deviations General Gait Pattern Decreased Stride Length, Decreased Feet Clearance, Flexed Trunk Factors Limiting Gait Function Factors Limiting Gait Function Decreased Activity Tolerance, Decreased Strength,Pain Comments Gait Comments Pt used FWW for ambulation but did not do much UE weightbearing, using the walker for balance primarily. No respiratory distress. SpO2 was stable mid-90's Stair Climbing Assessment Comments Stair Climbing Comments Not assessed. PT-Balance Assessment Sitting Balance and Reactions Static Sitting Balance Ability Good Dynamic Sitting Balance Ability Good Standing Balance and Reactions Static Standing Balance Ability Good Dynamic Standing Balance Ability Good Device Used FWW Balance Tests Single Limb Standing unable Romberg increased sway in NBOS and with EC Tandem Standing able to get into position but can not hold >15 sec M5 PT-IP Objective Assessments Start: 03/13/21 15:41 Freq: NEEDED Status: Active Protocol: Document 03/13/21 16:35 AW (Rec: 03/13/21 17:06 AW [id number]) Orientation Orientation/Cognition Level of Alertness Alert Orientation Name,Day of Week,Place, Situation Language Function Ability No Deficits Noted Safety Awareness Decreased Safety Awareness Gross Range of Motion Lower Extremity ROM Assessment Within Functional Limits Strength Lower Extremity Strength Assessment Bilaterally Impaired Hip 4-/5 Knee 4+/5 Ankle DF 4+/5; PF 4/5 Comments Strength Comments No unilateral deficit on exam Coordination Assessment Assessment Finger to Nose Test Minimal Impairment Pronation/Supination Test Normal Performance Foot Tapping Test Normal Performance Coordination Comments Right side lagged slightly in speed with rapid finger to nose testing but no missed targets. Sensation Assessment Sensation Gross Sensation WNL Muscle Tone Muscle Tone WNL Yes Other Assessments Other Other Assessments Occulomotor and vestibular screening were grossly normal. M6 PT-IP Treatment Start: 03/13/21 15:41 Freq: NEEDED Status: Active Protocol: Document 03/13/21 16:35 AW (Rec: 03/13/21 17:06 AW [id number]) Physical Therapy Treatment Education Education Provided Safety Other Treatments Other Treatment Performed Educated pt on recommendation for FWW at this time. Pt understood and agreed. 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 She is independent at baseline but does have history of injurious falls. She required no more than SBA for all mobility using FWW during this assessment and maintained her O2 sats mid-90's throughout. PT finds no evidence of lateralizing deficit other than slight dysmetria with the right upper extremity. No acute PT needs are identified. Pt lives with her spouse who is able to assist when pt goes home. She will be safe to discharge home with assist once medically stable. She may benefit from outpatient PT to address strength and gait impairments. Frequency of Treatment Frequency Of Treatment Discharge Recommendations To Nursing Amount of Assist Needed Standby Assistance Discharge Recommendations PT Discharge Recommendations Home with Assistance, Outpatient PT Transportation Needs at Discharge Private Vehicle
--- NOTE | 2021-03-13 16:45 | CM.DANOTE ---
DCP/Assessment: Reviewed chart. Patient is a 80yr old female admitted to [facility] with COVID and stroke like symptoms. PCP is Ani Schaefer. Primary payor is 1[facility]. Patient currently COVID+ so PERIANESTHESIA RN did not enter room. At time of review therapy evaluating patient. Arlene with therapy reports that patient did very well with therapy and that they are not recommending SNF or HH at this time. P: Anticipate home when medically stable. CM team to continue to follow if needs arise. KJS Discharge Planning/Care Management CM Discharge Assessment Start: 03/13/21 16:42 Freq: Status: Active Protocol: Document 03/13/21 16:43 KJS (Rec: 03/13/21 16:45 KJS [id number]) Discharge Planning Assessment Assigned Independent Crop Consultant ABHISHEK Taylor Contact Information Kervin Thomason (son) ph# [phone] Advance Directives? Yes Advance Directives on File No History Provided By Medical Record Prior Living Arrangements House Household Members spouse Independent with ADL's Yes Is patient alert and oriented? Yes Caregiver for Another No DME Already Rented / Owned FWW / Walker Comment Patient has walker for home use if needed. Barriers to Discharge No Discharge Plan Home Transportation Arrangement Family Referrals Initiated None needed Additional Comment CM team continuing to follow. At this time therapy reports no needs. Comment COVID+ Review Status In Process Next Review Type Continued Stay Review
--- NOTE | 2021-03-13 18:01 | OT.IPNOTE ---
Pt having dinner, therefore check on pt in AM for OT eval.
--- NOTE | 2021-03-13 18:05 | PC.NURSE ---
pt alert/oriented and conversant- lungs diminished at bases and able to be room air with spo2 90-96% able to transfer to chair or bsc with assist of 1 - MRI with 2 areas of questionable infarct acute vs subacute- pt has intelligible speech and kable to tolerate her diet well with regular texture and thin liquids, no noted edema- pt/ot evaluations as well as echo and mri completed today-
[2021-03-13] MEDS: ATORVASTATIN 20 MG TABLET 40 MG PO (20:45)
[2021-03-14 00:05] VITALS: BP 118/84; PULSE 67; RESP 18; TEMP 36.6; O2SAT 94
[2021-03-14] MEDS: AZITHROMYCIN 500 MG in DEXTROSE 5% IN WATER 250 ML IV (00:50)
[2021-03-14 04:00] VITALS: BP 112/74; PULSE 76; RESP 18; TEMP 36.1; O2SAT 94
[2021-03-14 05:25] LABS: Add Manual Diff / Slide Review NO; Basophils Absolute Auto 0 /uL (0-100); Basophils Percent Auto 0.2 % (0-2); Eosinophils Absolute Auto 0 /uL (0-450); Hematocrit 40.1 % (36-46); Hemoglobin 13.4 g/dL (12.0-16.0); Lymphocytes Absolute Auto 1000 /uL (1100-4500); Lymphocytes Percent Auto 22.8 % (25-40); Mean Corpuscular HGB Conc 33.3 % (30-36); Mean Corpuscular Hemoglobin 28.3 PG (26-34); Mean Corpuscular Volume 85.1 fL (80-100); Monocytes Absolute Auto 600 /uL (0-900); Monocytes Percent Auto 13.8 % (3-14); Neutrophils Absolute Auto 2700 /uL (1500-7000); Neutrophils Percent Auto 63.2 % (50-75); Platelet Count 178 X10^3/uL (150-400); Red Blood Cell Count 4.72 X10^6/uL (4.0-5.2); Red Cell Distribution Width 14.3 % (11.6-14.8); White Blood Cell Count 4.3 X10^3/uL (4.5-11.0)
[2021-03-14 05:36] LABS: BUN Creatinine Ratio 40.4 (6-22); Blood Urea Nitrogen 19 mg/dL (7-17); Calcium 8.5 mg/dL (8.4-10.2); Carbon Dioxide 23 mmol/L (22-32); Chloride 111 mmol/L (98-107); Creatine Kinase 143 U/L (30-135); Estimated Glomerular Filt Rate > 60.0 mL/min (>60); Glucose 133 mg/dL (80-110); HEMOLYSIS < 15 (0-50); Lactate Dehydrogenase 704 U/L (313-618); Magnesium 2.4 mg/dL (1.6-2.3); Potassium 3.9 mmol/L (3.4-5.1); Sodium 141 mmol/L (137-145)
[2021-03-14 07:10] VITALS: BP 128/60; PULSE 67; RESP 18; TEMP 36.1; O2SAT 94
[2021-03-14] MEDS: CLOPIDOGREL 75 MG TABLET PO (09:55)
[2021-03-14] MEDS: DEXAMETHASONE 10 MG/ML VIAL 6 MG IV (09:55)
[2021-03-14] MEDS: ASPIRIN EC 81 MG TABLET PO (09:55)
--- NOTE | 2021-03-14 13:55 | OT.IP.EVAL ---
Past Medical History (Last Reviewed 03/13/21 @ 00:27 by DESIRAE Jade) History of hip replacement Surgical History (Last Reviewed 03/13/21 @ 00:27 by DESIRAE Jade) History of hip replacement Laceration of right calf Occupational Therapy Inpatient Evaluation/Re-Eval M1 PT/OT-IP Prior Functional Status Start: 03/13/21 15:41 Freq: NEEDED Status: Active Protocol: Document 03/14/21 09:35 [facility] (Rec: 03/14/21 13:55 [facility] [id number]) Medical Review Prior Functional Status Medical History Reviewed Yes Communication Pt is able to make her needs known. Mobility and Gait Pt is independent with all mobility at home. She typically uses no AD. She fell recently and hurt her tailbone; she found using a cane helpful after her fall. Pt states at times uses FWW that she share with her once in a great while. Activities of Daily Living and IADL's Independent with all ADL's and IADL's. 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 Prior Functional Level (Other details) Pt has had several injurious falls over the years - including one that resulted in hip fracture - but she states she has fallen just once in the past year. Social History Household Members spouse Living Arrangements House Number of Floors (Floors) One Floor Number of Stairs To Enter/Railing? 3 steps with left rail going up. Home Environment Walk in Shower,Built-In Shower Seat Home Equipment Front Wheel Walker,Straight Cane,Hand Held Shower,Grab Bars In Shower Additional Social History Comment Pt lives with her spouse, Aydin, who will be available and able to provide assist when pt goes home. M2 OT-IP Current Condition Start: 03/14/21 13:33 Freq: Status: Active Protocol: Document 03/14/21 09:35 [facility] (Rec: 03/14/21 13:55 [facility] [id number]) Occupational Therapy Current Condition Current Condition Evaluation Date 03/14/21 Treatment Diagnosis 2 seperate acuteto subacute lacunar infarcts, decreased mobility Diagnosis Onset Date 03/12/21 M3 OT- IP Subjective and Pain Start: 03/14/21 13:33 Freq: Status: Active Protocol: Document 03/14/21 09:35 [facility] (Rec: 03/14/21 13:55 [facility] [id number]) OT- Subjective Occupational Therapy Visit Type Type Initial Evaluation Visit Start Time 09:45 Visit Stop Time 11:05 Total Visit Minutes 80 Occupational Therapy Visit Comments Patient Comments Pt agreed to do OT eval. Patient/Caregiver Goals TO go home. OT Pain Assessment Pain When Pain Assessed At Rest Pain Present Pain Present Denied Pain M4 OT- IP ADL's Start: 03/14/21 13:33 Freq: Status: Active Protocol: Document 03/14/21 09:35 [facility] (Rec: 03/14/21 13:55 [facility] [id number]) OT GVS-Fiuv-[id number] General Evaluation Self-Feeding Ability Independent OT ADL-Grooming General Evaluation Grooming Ability Standby Assistance Areas Needing Assistance Retrieving/Set-up of Grooming Items OT ADL-Oral Care General Eval Oral Care Ability Standby Assistance Areas of Assistance Retrieving/Set-Up of Items OT ADL-Dressing General Eval Lower Body Dressing Ability Standby Assistance Comments OT Dressing Comments Pt able to shellie/doff socks and compression stocking on her own. Close SBA while pt bending over to shellie brief over her feet. OT ADL-Toileting General Evaluation Toileting Ability Contact Guard Assistance Areas Needing Assistance Manage Clothing Comments OT Toileting Comments CGA for balance while standing to pull up her brief or heavy use of grab bar for balance. OT ADL-Bathing Comments OT Bathing Comments NOt performed. Suggested at this time due to decreased balance to have a shower chair at home to use for safety and have present for safety and assist as needed. M5 OT- IP IADL's Start: 03/14/21 13:33 Freq: Status: Active Protocol: Document 03/14/21 09:35 [facility] (Rec: 03/14/21 13:55 [facility] [id number]) OT-Instrumental Activities of Daily Living Deficits IADL Deficits Identified Deficits Home Safety Awareness Awareness of Need for Assistance at Home Decreased Awareness Home Safety Comments Pt needing increased time to initiate movement and for problem solving needs and would benefit form her to supervision and assist at needed for all tasks. Driving Driving Concerns Identified Regarding Safety M6 OT- IP Functional Cognition Start: 03/14/21 13:33 Freq: Status: Active Protocol: Document 03/14/21 09:35 [facility] (Rec: 03/14/21 13:55 [facility] [id number]) Cognitive Factors Limiting Selfcare Function Cognitive Ability Level of Alertness Alert Patient Orientation Name,Place Attention Span Ability Capable of Focused Attention, Capable of Sustained Attention Ability to Follow Commands Able to Follow One Step Commands Memory Description Short Term Impaired Safety Awareness Underestimates Need for Assistance Problem Solving Ability Needs Assist to Identify Solutions Cognitive Comments Cognitive Assessment Comments Pt very slow to process information and needing 370 seconds to complete [place] Making Part B which implies severe impairments for visual attention, task switching, speed of processing, mental flexibility, and executive functioning and strongly suggested not to drive at this time. Pt agreed and also spoke to he on the phone regarding her cognitive deficits and decreased balance and now needing use of FWW. OT- Vision and Hearing OT- Hearing Assessment OT- Hearing Assessment WFL OT- Vision Assessment Visual Acuity WFL Occular Pursuits WFL Vision Assessment Comments Pt has mild difficulty to right lower quadrant. M7 OT- IP Mobility and Balance Start: 03/14/21 13:33 Freq: Status: Active Protocol: Document 03/14/21 09:35 [facility] (Rec: 03/14/21 13:55 [id number]-Transfer Assessment Sit to and From Stand Sit to and from Stand Standby Assistance Transfers Transfer Ability Standby Assistance,Moderate Assistance Technique Transfer Destination Chair,Toilet Transfer Technique Stand Step Pivot Devices Transfer Assistive Devices Gait Belt,Front Wheeled Walker Comments Mobility Comments Pt needing FWW for balance today and if trying to take steps without needing MIN/MOD x1. OT- Balance Assessment Sitting Balance and Reactions Static Sitting Balance Ability Normal Dynamic Sitting Balance Ability Fair Standing Balance and Reactions Static Standing Balance Ability Fair Dynamic Standing Balance Ability Poor M8 OT- IP Objective Assessments Start: 03/14/21 13:33 Freq: Status: Active Protocol: Document 03/14/21 09:35 [facility] (Rec: 03/14/21 13:55 [facility] [id number]) OT Gross Range of Motion Upper Extremity Range of Motion Assessment Within Functional Limits OT Strength Comments Strength Comments BUE 4/5 OT- Coordination Assessment Upper Extremity Finger to Nose Test Bilateral UE Impaired Comments Coordination Comments 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 OT-Muscle Tone Assessment Muscle Tone WNL Yes M9 OT- IP Assessment and Plan Start: 03/14/21 13:33 Freq: Status: Active Protocol: Document 03/14/21 09:35 [facility] (Rec: 03/14/21 13:55 [id number] OT Summary Assessment and Plan Potential Rehabilitation Potential Good Analytic Complexity at Evaluation Moderate Summary OT Impairments Balance,Functional Cognition, Functional Mobility,Grooming, Dressing,Toileting,Bathing, Toilet Transfers,Shower Transfers,Activity Tolerance Progress Towards Goals Progressing Toward Goals Assessment Summary Pt MOD complexity here due to acute/subacute lacunar infarcts. Pt's main barriers are steps, needing increased time to process and initiate movements at times, decreased dynamic balance, and scored 370 seconds on [place] Making Part B which implies severe impairments for speed of processing, task switching, mental flexibility, executive functioning, and for visual attention. Both pt and aware of suggestion for no driving , to get a FWW, shower chair , and fo her to nikki there 18/11 to provide supervision and assist as needed. Pt would benefit from outpt OT versus home health. Goals Self-Feeding Goal Independent Grooming Goal Independent Dressing Goal Independent Toileting Goal Independent Bathing Goal Independent Toilet Transfer Goal Independent Shower Transfer Goal Independent Days to Meet Goals 15 Frequency of Treatment Frequency Of Treatment Once a Day Treatment Plan OT Treatment Plan ADL Training,Functional Cognition Training,Functional Mobility,Patient/Family Education,Discharge Planning Discharge Recommendations OT Discharge Recommendations Home with 18/11 Assist Available,Home Health, Outpatient PT Home Equipment Needs FWW, shower chair Transportation Needs at Discharge Private Vehicle
--- NOTE | 2021-03-14 14:30 | PC.NURSE ---
Discharge instructions and IV removed by RALPH Vaughan. Patient's at bedside to speak with Dr. Hackett. Rx given by Dr. Hackett. Tele removed. Patient wheeled downstairs to private car. No questions or concerns at discharge.
== END 2021-03-14 14:15 | disposition home or self-care (01) | DRG 177 ==
LOC: ED 19:29 → AC 22:21 → ICU 23:00 → AC 03-13 21:42
PROVIDERS: Admitting Provider Nurse Practitioner Family; Emergency Provider Emergency Medicine; PCP Physician Assistant; Referring Provider Emergency Medicine; Visit Provider Nurse Practitioner Family
DX: U07.1 COVID-19 (principal); I63.9 Cerebral infarction, unspecified; J12.82 Pneumonia due to coronavirus disease 2019; R47.01 Aphasia; R41.0 Disorientation, unspecified; E78.5 Hyperlipidemia, unspecified; R29.702 NIHSS score 2; R29.704 NIHSS score 4
CPT/HCPCS: 36415; 70450; 70548; 70553; 71045; 80048; 80053; 80305; 81003; 81015; 82550; 82553; 83036; 83605; 83615; 83735; 84443; 84484; 85025; 87040; 87077; 87086; 87186; 87635; 87797; 93005; 93306; 96125; 96361; 96365; 97162; 97166; 97530; 97535; 99285; C9803; J0696; J1100

== ENCOUNTER → 2022-07-11 11:52 | Outpatient (CLI) | payer OTHER, SELFPAY ==
[2021-03-12 23:30] VITALS: BMI 24.7
--- NOTE | 2022-07-11 11:53 | DI.RAD.S_ITS ---
PROCEDURE: XR RIBS RT MIN 3V W CXR 1V INDICATIONS: Rib pain TECHNIQUE: 2 views of the right ribs were acquired, along with a single view chest. COMPARISON: [facility], , XR CHEST 1V, 03/12/2021, 20:58. FINDINGS: Surgical changes and devices: None. Bones and chest wall: Possible nondisplaced right 6th rib fracture. No suspicious bony lesions. Overlying soft tissues appear unremarkable. Lungs and pleura: No pleural effusions or pneumothorax. Lungs appear clear. Mediastinum: Mediastinal contours appear normal. Heart size is normal. IMPRESSION: Possible nondisplaced right 6th rib fracture. Dictated by: Jose Castillo M.D. on 07/11/2022 at 15:56 Approved by: Jose Castillo M.D. on 07/11/2022 at 15:59
== END ==
PROVIDERS: PCP Physician Assistant; Referring Provider Nurse Practitioner Family; Visit Provider Nurse Practitioner Family
DX: R07.81 Pleurodynia (principal)
CPT/HCPCS: 71101

== ENCOUNTER → 2022-09-02 11:16 | Outpatient (CLI) | payer OTHER, SELFPAY ==
[2021-03-12 23:30] VITALS: BMI 24.7
--- NOTE | 2022-09-02 | DI.US.S_ITS ---
PROCEDURE: US ABDOMEN LIMITED INDICATIONS: ELEVATION OF LEVELS OF LIVER TRANSAMINASE TECHNIQUE: Real-time scanning was performed of the abdominal and retroperitoneal organs, with image documentation. COMPARISON: None. FINDINGS: Liver: Liver is normal in size and echotexture. Multiple small cysts are noted in liver parenchyma measures up to 1.5 x 1.2 x 1.2 cm in left hepatic lobe and 1.2 x 1.1 x 1.5 cm in size in right hepatic lobe. No solid hepatic lesion is noted. Gallbladder: There is a 2.1 x 0.9 x 1.8 cm gallstone. Slightly thickened gallbladder wall is noted measures up to 4.3 mm in thickness. No pericholecystic fluid or sonographic Sebastian sign. Biliary ducts: Intrahepatic bile ducts are non-dilated. Extrahepatic bile duct caliber measures 2.6 mm. Normal is 6-7 mm or less in diameter, or 10 mm or less post-cholecystectomy. Pancreas: Visualized portions of the pancreas are sonographically normal. IMPRESSION: 1. Cholelithiasis with mild gallbladder wall thickening. No sonographic evidence of acute cholecystitis. Finding could represent chronic cholecystitis suggest clinical correlation. 2. No biliary ductal dilatation. 3. Multiple hepatic cysts. No solid appearing hepatic lesion. Dictated by: Felice Lewis M.D. on 09/02/2022 at 12:54 Approved by: Felice Lewis M.D. on 09/02/2022 at 12:56
== END ==
PROVIDERS: PCP Physician Assistant; Referring Provider Internal Medicine; Visit Provider Internal Medicine
DX: K76.89 Other specified diseases of liver (principal); K80.20 Calculus of gallbladder without cholecystitis without obstruction; R10.9 Unspecified abdominal pain; R74.01 Elevation of levels of liver transaminase levels
CPT/HCPCS: 76705

== ENCOUNTER → 2022-09-09 12:56 | Outpatient (CLI) | payer OTHER, SELFPAY ==
[2021-03-12 23:30] VITALS: BMI 24.7
--- NOTE | 2022-09-09 | DI.RAD.S_ITS ---
Bone Density Report Name: PIERCE LIU Age: 82 Sex: Female Ethnicity: White Date of : 1940 Indication: osteopenia; prior fracture; Referring Provider: HEBER MEANS Study: Bone densitometry was performed. Exam Date: September 09, 2022 Accession number: [id number] Bone Density: Region BMD T-score Z-score Classification AP Spine(L1-L4) 0.925 -1.1 1.7 Osteopenia Femoral Neck (Right) 0.686 -1.5 1.0 Osteopenia Total Hip (Right) 0.665 -2.3 0.0 Osteopenia Total Forearm (Left) 0.398 -3.3 0.1 Osteoporosis 1/3 Forearm (Left) 0.510 -3.1 0.6 Osteoporosis UD Forearm (Left) 0.300 -2.5 0.1 Osteoporosis World Health Organization criteria for BMD impression classify patients as: Normal (T-score at or above -1.0), Osteopenia (T-score between -1.0 and -2.5), or Osteoporosis (T-score at or below -2.5). 10-year Fracture Risk(1): Major Osteoporotic Fracture 19% Hip Fracture 4.4% Reported Risk Factors: [place] (), Neck BMD=0.686, BMI=23.7, previous fracture (1) FRAX(R) Version 3.08. Fracture probability calculated for an untreated patient. Fracture probability may be lower if the patient has received treatment. Previous Exams: -- Region Exam Age BMD T-score BMD Change BMD Change Date g/cm2 vs Baseline vs Previous -- AP Spine (L1-L4) 09/09/2022 82 0.925 -1.1 -0.020 (-2.1%)# -0.020 (-2.1%)# 05/31/2019 78 0.945 -0.9 Total Hip(Right) 09/09/2022 82 0.665 -2.3 -0.034 (-4.9%)# -0.034 (-4.9%)# 05/31/2019 78 0.699 -2.0 -- *Denotes significance at 95% confidence level, LSC for AP Spine = 0.022 g/cm2, LSC for Total Hip = 0.027 g/cm2 # Denotes dissimilar scan types or analysis methods Impression: The patient has low bone mass, based on the Right Total Hip T-score. The patient has an estimated ten-year risk of hip fracture of 4.4% and an estimated ten-year risk of major fracture of 19%, based on the WHO FRAX algorithm. The patient has risk factors, including: previous fracture. No significant bone loss was observed. Discussion: BONE DENSITY IS LOW AT ONE OR MORE SKELETAL SITES. THE PATIENT'S BMD AND CLINICAL RISK FACTORS CONTRIBUTE TO THIS PATIENT'S INCREASED RISK OF FRACTURE. This patient's lowest T-score is low at one or more skeletal sites. It meets the World Health Organization's (WHO) criteria for low bone mass (T-score between -1.0 and -2.5). The patient's 10-year risk of hip fracture as calculated by FRAX exceeds the threshold where pharmacological therapy is recommended by the National Osteoporosis Foundation (NOF). However, all treatment decisions require clinical judgment and consideration of individual patient factors, including patient preferences, comorbidities, previous drug use, risk factors not captured in the FRAX model (e.g., frailty, falls, vitamin D deficiency, increased bone turnover, interval significant decline in bone density) and possible under or overestimation of fracture risk by FRAX. The patient should follow a healthful lifestyle (good nutrition with adequate calcium and vitamin D, and appropriate weight-bearing exercise). Follow-Up: Consider a repeat BMD and Vertebral Fracture Assessment (VFA) exam in 2 years or sooner if medically necessary, to reassess this patient's status. Reported by: DILLAN MABRY MD on 09/09/2022 1:15:00 PM.
== END ==
PROVIDERS: PCP Physician Assistant; Referring Provider Physician Assistant; Visit Provider Physician Assistant
DX: M81.0 Age-related osteoporosis without current pathological fracture (principal); Z78.0 Asymptomatic menopausal state; Z79.83 Long term (current) use of bisphosphonates; Z87.311 Personal history of (healed) other pathological fracture; Z90.710 Acquired absence of both cervix and uterus
CPT/HCPCS: 77080

== ENCOUNTER → 2022-09-17 07:41 | Outpatient (CLI) | payer OTHER, SELFPAY ==
[2021-03-12 23:30] VITALS: BMI 24.7
--- NOTE | 2022-09-17 | DI.NM.S_ITS ---
PROCEDURE: NM HIDA WITH CCK PHARMACEUTICAL: 5.3 mCi Tc-99m mebrofenin IV; 1.2 mcg CCK IV. INDICATIONS: Other specified diseases of gallbladder TECHNIQUE: Following intravenous administration of Tc-99m mebrofenin, sequential anterior abdominal images were obtained. To evaluate the contractile response of the gallbladder in response to Cholecystokinin (CCK), sincalide (0.02 ?g/kg) was administered by slow intravenous infusion approximately 60 minutes after the administration of the radiopharmaceutical. Sequential imaging was continued for 30 minutes after the start of CCK infusion. Gallbladder ejection fraction was calculated. COMPARISON: [facility], ABDOMEN LIMITED, 09/02/2022, 11:23. FINDINGS: Biliary scan: There is normal tracer uptake and excretion by the liver. There is normal visualization of the intrahepatic ducts, common bile duct, and gallbladder. There is normal tracer transit into the duodenum. CCK stimulation: There is normal contractile response of the gallbladder to CCK infusion. The calculated gallbladder ejection fraction is 82% ; normal values are above 35%. It has been shown that any patient abdominal pain after CCK administration is related to the rate of CCK injection, rather than to any underlying gallbladder disease (Clinical Nuclear Medicine 2012; 37: 63-70. Journal of Nuclear Medicine 2014; 55: 1-9). IMPRESSION: 1. Normal filling of gallbladder. No evidence for acute cholecystitis. 2. Normal contractile response of gallbladder to CCK stimulation. Dictated by: Jose Castillo M.D. on 09/17/2022 at 10:32 Approved by: Jose Castillo M.D. on 09/17/2022 at 10:34
== END ==
PROVIDERS: PCP Physician Assistant; Referring Provider Physician Assistant; Visit Provider Physician Assistant
DX: K82.8 Other specified diseases of gallbladder (principal)
CPT/HCPCS: 78227; A9537; J2805

== ENCOUNTER → 2024-01-19 08:48 | Outpatient (CLI) | payer OTHER, SELFPAY ==
[2021-03-12 23:30] VITALS: BMI 24.7
[2024-01-19 09:57] LABS: Add Manual Diff / Slide Review NO; Basophils Absolute Auto 0 /uL (0-100); Basophils Percent Auto 0.8 % (0-2); Eosinophils Absolute Auto 200 /uL (0-450); Eosinophils Percent Auto 2.8 % (2-4); Hematocrit 42.5 % (36-46); Hemoglobin 14.2 g/dL (12.0-16.0); Lymphocytes Absolute Auto 1600 /uL (1100-4500); Lymphocytes Percent Auto 25.7 % (25-40); Mean Corpuscular HGB Conc 33.5 % (30-36); Mean Corpuscular Hemoglobin 29.3 PG (26-34); Mean Corpuscular Volume 87.5 fL (80-100); Monocytes Absolute Auto 600 /uL (0-900); Neutrophils Absolute Auto 3900 /uL (1500-7000); Neutrophils Percent Auto 61.7 % (50-75); Platelet Count 245 X10^3/uL (150-400); Red Blood Cell Count 4.85 X10^6/uL (4.0-5.2); White Blood Cell Count 6.3 X10^3/uL (4.5-11.0)
[2024-01-19 10:28] LABS: Alanine Aminotransferase 24 IU/L (<35); Albumin 3.8 g/dL (3.5-5.0); Albumin Globulin Ratio 1.3 (1.0-2.8); Alkaline Phosphatase 63 U/L (38-126); Aspartate Aminotransferase 25 IU/L (14-36); BUN Creatinine Ratio 40.4 (6-22); Bilirubin Total 1.3 mg/dL (0.2-1.3); Blood Urea Nitrogen 23 mg/dL (7-17); Carbon Dioxide 25 mmol/L (22-32); Chloride 106 mmol/L (98-107); Estimated Glomerular Filt Rate > 60 mL/min (>60); Globulin 2.9 g/dL (1.7-4.1); Glucose 92 mg/dL (80-110); HEMOLYSIS < 15 (0-50); Potassium 4.2 mmol/L (3.4-5.1); Sodium 139 mmol/L (137-145); Total Protein 6.7 g/dL (6.3-8.2)
[2024-01-19 10:45] LABS: Vitamin D 25 Hydroxy (D3) 32.8 ng/mL (30.0-100.0)
== END ==
LOC: LAB 08:49
PROVIDERS: PCP Family Medicine; Referring Provider Family Medicine; Visit Provider Family Medicine
DX: M81.0 Age-related osteoporosis without current pathological fracture (principal); Z76.89 Persons encountering health services in other specified circumstances
CPT/HCPCS: 36415; 80053; 82306; 85025

== ENCOUNTER → 2024-11-11 08:26 | Outpatient (CLI) | payer OTHER, SELFPAY ==
[2021-03-12 23:30] VITALS: BMI 24.7
--- NOTE | 2024-11-11 08:27 | DI.MG.S_ITS ---
US breast RT limited, MM diagnostic mammo BI: 11/11/2024 BI-RADS: 2 CLINICAL: 84-year old female for bilateral diagnostic mammogram and right diagnostic breast ultrasound. No Tyrer-Cuzick risk score calculation due to patient's age being over 85 years old. Current reported family history of breast cancer: sister. The patient reports pain (1 month) in the right breast that was felt on palpation during physical exam. The patient had a prior right breast biopsy. PRIOR EXAMS 09/19/2020, 09/16/2019, 09/09/2018, 09/03/2017. MAMMOGRAPHY TECHNIQUE: 2D and 3D (tomosynthesis) digital mammographic views obtained, with additional images as needed for full coverage. Current study was also evaluated with a Computer Aided Detection (CAD) system. ULTRASOUND TECHNIQUE TARGETED Right Breast Ultrasound: Real-time ultrasound exam was performed focused to area of clinical and/or imaging concern. DENSITY B. There are scattered areas of fibroglandular density. MAMMOGRAPHY FINDINGS Right (finding-1): Upper Outer at 10:00, Middle depth: There is no suspicious mammographic finding to account for clinicians' concern of pain/tenderness. No suspicious mass, asymmetry, microcalcification, or other abnormality seen. Right: Biopsy marker present on the right. Benign-appearing calcification noted on the right. There are no suspicious masses, calcifications, or other findings in the breast. No significant change from comparison. Left: Benign-appearing calcification noted on the left. There are no suspicious masses, calcifications, or other findings in the breast. No significant change from comparison. ULTRASOUND FINDINGS Right (finding-1): Upper Outer at 10:00: There is no sonographic abnormality to account for clinicians' concern of pain/tenderness. IMPRESSION: * No evidence of malignancy with benign findings. RECOMMENDATIONS Right * Clinical follow-up is recommended, and further management of palpable abnormalities or other focal signs or symptoms should be based on the results of clinical evaluation. If palpable abnormality or other concerning symptom persists or progresses, further clinical evaluation should be considered. Bilateral * Annual screening mammography. COMMENTS: Findings and recommendations were conveyed to the patient during today's evaluation. OVERALL ASSESSMENT CATEGORY BI-RADS-2: Benign. The [employer] recommends annual screening mammography beginning at age 40 for women with average risk of breast cancer. ELECTRONICALLY SIGNED: Brianna Murphy M.D. on 11/11/2024 at 10:38:08 AM PT Interpreting Station ID: [id number]
== END ==
PROVIDERS: PCP Family Medicine; Referring Provider Family Medicine; Visit Provider Family Medicine
DX: R92.1 Mammographic calcification found on diagnostic imaging of breast (principal); N64.4 Mastodynia; Z80.3 Family history of malignant neoplasm of breast
CPT/HCPCS: 76642; 77066; G0279

== ENCOUNTER 2025-03-02 03:25 | Observation (INO) | payer MEDICARE, SELFPAY ==
[2021-03-12 23:30] VITALS: BMI 24.7
[2025-03-02] VITALS (14 sets, daily range): BP systolic 126–197; BP diastolic 72–96; PULSE 59–90; RESP 13–24; TEMP 36.3–36.5; O2SAT 92–97; BMI 24.7
--- NOTE | 2025-03-02 03:34 | ED_ITS ---
HPI - Chest Pain
--- NOTE | 2025-03-02 03:34 | ED.CHESTPAIN ---
HPI - Chest Pain General Chief Complaint: Chest Pain Stated Complaint: Chest pain Time Seen by Provider: 03/02/25 03:31 History of Present Illness HPI narrative: 84-year-old female with history of prior stroke with no persisting weakness or functional sequelae, history of TIA, without history of known coronary artery disease, has stomach acid reflux problems in the past, awakened from sleep 3:00 a.m. this morning with left anterior chest discomfort radiating to left jaw, lasting about 10 minutes, resolved without specific treatment, some associated diaphoresis, no nausea or vomiting, no radiation to the arms or back or legs. She took one oral baby aspirin, no other treatments. No known diabetes, does take statin for high cholesterol, denies hypertension, denies history of smoking. Denies recent cough, fevers, chills, trauma, fall, new activities. Denies abdominal pain, vomiting, diarrhea, painful/frequent urination, flank pain. Related Data Home Medications ?Medication ?Instructions ?Recorded ?Confirmed cholecalciferol (vitamin D3) 25 5,000 u PO QDAY ##0 01/01/11 03/02/25 mcg (1,000 unit) tablet (Vitamin D3) vitamin E 268 mg (400 unit) capsule 400 unit PO DAILY ##0 01/01/11 03/02/25 ascorbic acid (vitamin C) 1,000 mg 1,000 mg PO Q12H ##0 01/08/11 03/02/25 tablet,extended release (Vitamin C ER) niacinamide 500 mg tablet (Niacin 500 mg PO QDAY ##0 01/08/11 03/02/25 (niacinamide)) calcium 500 mg tablet 1,000 mg PO DAILY 07/20/20 03/02/25 multivitamin (Multiple Vitamins 1 tab PO DAILY 01/19/24 03/02/25 tablet) atorvastatin 40 mg tablet 40 mg PO BEDTIME 10/26/24 03/02/25 latanoprost 0.005 % eye drops 1 drp EYE-BOTH DAILY 12/09/24 03/02/25 Previous Rx's ?Medication ?Instructions ?Recorded aspirin 81 mg tablet,delayed 81 mg PO DAILY #90 tabs 03/14/21 release pantoprazole 40 mg tablet,delayed 40 mg PO DAILY #30 tabs 03/02/25 release (Protonix) sucralfate 100 mg/mL oral 10 ml PO QACHS #400 mL 03/02/25 suspension Allergies Allergy/AdvReac Type Severity Reaction Status Date / Time No Known Drug Allergies Allergy Verified 03/02/25 03:29 Patient History Medical History (Updated 03/02/25 @ 08:54 by Altagracia Amanda DO) Stroke COVID-19 Chest pain Wears glasses TIA (transient ischemic attack) (~2021) Osteoporosis Mumps Measles Chicken pox Vertigo Cataracts, bilateral (~2018) Surgical History (Updated 01/08/24 @ 20:15 by Edelmira Cai) Anesthesia Laceration of right calf History of hip replacement Family History (Updated 01/08/24 @ 20:16 by Edelmira Cai) Father Myocardial infarction Diabetes mellitus Mother Myocardial infarction Congestive heart failure Social History (Updated 12/09/24 @ 13:01 by Jenifer Martell MA) marital status: number of children: 3 household members: spouse lives independently: No () caregiver/support person: No housing: house pets and animals: No occupational status: previously employed current occupational exposures/hazards: No gurpreet/holiness: Sikh special gurpreet needs: No travel history: over 6 months ago leisure activities: music seatbelt use: always helmet use: No water heater temp set < 120 deg: Yes working smoke detector in home: Yes fire extinguisher in home: Yes carbon monox detector in home: Yes firearms in home: No do you feel safe at home: Yes Smoking Status: Never smoker alcohol intake: never substance use type: does not use during the past year weight has: remained stable well-balanced diet: daily or most days daily servings fruits/ve-1 caffeine: No eating out: other Type(s) of exercise: walking alcohol intake frequency: 0-2 drinks per day Exam Narrative Exam Narrative: GENERAL: Well-developed patient, in mild distress. HEAD: Atraumatic. Normocephalic. EYES: Pupils equal round and reactive. Extraocular motions intact. No scleral icterus. No injection or drainage. ENT: Nose without bleeding, purulent drainage. Throat without erythema, tonsillar hypertrophy or exudate. Airway patent. NECK: Trachea midline. Non tender CARDIOVASCULAR: Regular rate and rhythm without murmurs, gallops, or rubs. RESPIRATORY: Clear to auscultation. Breath sounds equal bilaterally. No wheezes, rales, or rhonchi. GASTROINTESTINAL: Abdomen soft, non-tender, nondistended. EXTREMITIES: No edema or joint tenderness. BACK: Nontender without deformity or crepitance. No flank tenderness. NEURO: AOx3. Motor functions grossly nonfocal. SKIN: No rash or erythema of visible areas Initial Vital Signs Initial Vital Signs: Vital Signs Pulse Oximetry 95 03/02/25 03:28 Scores HEART Score Heart Score history: Moderately Suspicious Heart Score EKG: Non-Specific repolarization disturbance Heart Score Age: > or = 65 years old Heart Score risk factors: 1-2 risk factors Heart Score troponin: < or = to normal limit Heart Score Total: 5 Course Orders Ordered: Discontinued Medications Acetaminophen (Acetaminophen 325 Mg Tablet) 650 mg PO Q6H PRN PRN Reason: Fever/Mild Pain (1-3) Hydrocodone Bitart/Acetaminophen (Hydrocodone/Acet 5/325 Tablet) 1 tab PO Q4H PRN PRN Reason: Pain, Moderate (4-6) Ascorbic Acid (Ascorbic Acid 500 Mg Tablet) 1,000 mg PO BID [facility] Last Admin: 03/02/25 11:57 Dose: Not Given Documented By: LINDA Aspirin (Aspirin 81 Mg Chew Tab) 243 mg PO NOW ONE Stop: 03/02/25 04:01 Last Admin: 03/02/25 04:09 Dose: Not Given Documented By: MARISEL Aspirin (Aspirin 81 Mg Chew Tab) 81 mg PO DAILY [facility] Aspirin (Aspirin Ec 81 Mg Tablet) 81 mg PO DAILY [facility] Atorvastatin Calcium (Atorvastatin 20 Mg Tablet) 40 mg PO BEDTIME [facility] Calcium Carbonate (Calcium Carbonate 500 Mg Tab) 1,000 mg PO DAILY [facility] Last Admin: 03/02/25 12:40 Dose: Not Given Documented By: LINDA Famotidine (Famotidine 20 Mg/2 Ml Vial) 20 mg IV NOW [facility] Last Admin: 03/02/25 04:07 Dose: 20 mg Documented By: MARISEL Heparin Sodium (Porcine) (Heparin 5,000 Unit/Ml Vial) 5,000 unit SUBCUT BID [facility] Sodium Chloride (Normal Saline 0.9%) 1,000 mls @ 75 mls/hr IV CONT [facility] Last Admin: 03/02/25 11:56 Dose: Not Given Documented By: LINDA Latanoprost (Latanoprost 0.005% Ophth 2.5 Ml) 1 drops EYE-BOTH BEDTIME [facility] Multivitamins (Multivitamin 1 Tablet) 1 tab PO DAILY [facility] Last Admin: 03/02/25 12:40 Dose: Not Given Documented By: LINDA Naloxone HCl (Naloxone 0.4 Mg/Ml Vial) 0.2 mg IV Q2MIN PRN PRN Reason: Opiate Reversal Vitamin D (Cholecalciferol (Vitamin D3) 1,000 Unit Tablet) 1,000 unit PO DAILY [facility] Last Admin: 03/02/25 12:40 Dose: Not Given Documented By: LINDA Vital Signs Vital signs: Vital Signs - 8 hr 03/02/25 03:28 03/02/25 03:29 03/02/25 03:29 Temperature 97.4 F L Pulse Rate 76 82 Respiratory Rate 17 Blood Pressure 193/91 H Pulse Oximetry 95 96 93 Oxygen Delivery Method Room Air 03/02/25 03:29 03/02/25 03:30 03/02/25 04:00 Temperature Pulse Rate 79 90 Respiratory Rate Blood Pressure 197/96 H Pulse Oximetry 94 94 Oxygen Delivery Method 03/02/25 04:01 03/02/25 04:01 03/02/25 04:30 Temperature Pulse Rate 79 67 Respiratory Rate Blood Pressure 191/86 H Pulse Oximetry 93 93 Oxygen Delivery Method 03/02/25 04:30 03/02/25 05:00 03/02/25 05:00 Temperature Pulse Rate 64 Respiratory Rate Blood Pressure 158/74 H 154/74 H Pulse Oximetry 93 Oxygen Delivery Method 03/02/25 05:30 03/02/25 05:30 03/02/25 06:00 Temperature Pulse Rate 63 60 Respiratory Rate Blood Pressure 149/72 H Pulse Oximetry 95 92 Oxygen Delivery Method Room Air 03/02/25 06:00 Temperature Pulse Rate Respiratory Rate Blood Pressure 164/77 H Pulse Oximetry Oxygen Delivery Method MDM - Chest Pain Lab Data Attestation: I reviewed the patient's lab results. Lab results narrative: White blood cell count 6900, hemoglobin 14.5, platelets adequate. Glucose 104. Normal renal function, serum CO2, electrolytes. Liver functions and lipase normal. Troponin negative/unmeasurable x2 interval sets. 03/02/25 03:20 03/02/25 03:20 Labs: Lab Results 03/02/25 03/02/25 Range/Units 03:20 05:30 WBC 6.9 (4.5-11.0) X10^3/uL RBC 4.94 (4.0-5.2) X10^6/uL Hgb 14.5 (12.0-16.0) g/dL Hct 43.1 (36-46) % MCV 87.2 (80-100) fL MCH 29.3 (26-34) PG MCHC 33.6 (30-36) % RDW 13.8 (11.6-14.8) % Plt Count 243 (150-400) X10^3/uL Neut % (Auto) 53.6 (50-75) % Lymph % (Auto) 35.2 (25-40) % [place] % (Auto) 7.5 (3-14) % Eos % (Auto) 2.8 (2-4) % Baso % (Auto) 0.9 (0-2) % Neut # (Auto) 3700 (5044-4666) /uL Lymph # (Auto) 2400 (0836-7111) /uL [place] # (Auto) 500 (0-900) /uL Eos # (Auto) 200 (0-450) /uL Baso # (Auto) 100 (0-100) /uL Sodium 142 (137-145) mmol/L Potassium 3.4 (3.4-5.1) mmol/L Chloride 111 H (98-107) mmol/L Carbon Dioxide 22 (22-32) mmol/L BUN 18 H (7-17) mg/dL Creatinine 0.50 L (0.52-1.04) mg/dL Estimated GFR > 60 (>60) mL/min BUN/Creatinine Ratio 36.0 H (6-22) Glucose 104 H (70-99) mg/dL Calcium 9.3 (8.4-10.2) mg/dL Magnesium 2.3 (1.6-2.3) mg/dL Total Bilirubin 1.0 (0.2-1.3) mg/dL AST 31 (14-36) IU/L ALT 30 (<35) IU/L Alkaline Phosphatase 69 (38-126) U/L CK-MB (CK-2) Cancelled Troponin I < 0.012 < 0.012 (0.01-0.034) ng/mL NT-Pro-B Natriuret Pep 162 (<450) pg/mL Total Protein 7.1 (6.3-8.2) g/dL Albumin 4.2 (3.5-5.0) g/dL Globulin 2.9 (1.7-4.1) g/dL Albumin/Globulin Ratio 1.4 (1.0-2.8) Lipase 170 (23-300) U/L Imaging Data Chest x-ray: My Impression: No acute changes, infiltrate, pneumothorax, fluid overload changes, increased cardiac silhouette, subdiaphragmatic free air, widened mediastinum. ED wet read. ECG Data Attestation: I personally reviewed and interpreted this ECG as follows: Interpretation: 0335, Normal sinus rhythm with rate 69, first-degree AV block, no obvious ST segment elevation or depression changes, limited by right bundle branch block pattern, no notching. ND 242 prolonged, QRS 132 widened, QTC 456. No significant change from comparison 06/17/2018. [facility] Narrative Medical decision making narrative: 84-year-old female with history of hyperlipidemia, no known CAD, but history of stroke/TIA without sequelae, had 10 minute duration left anterior chest pain with some radiation to left jaw. Took baby aspirin prior to arrival. Symptoms gone. Some associated diaphoresis, without nausea or emesis. Normotensive. Afebrile, sirs screen negative. Lungs clear, no respiratory distress. No leg tenderness or swelling. DDx consider ACS, TIFFANIE, esophagitis, aortic syndrome, pneumonia, other. Took baby aspirin, we will give additional 3 tablets baby aspirin. IV Pepcid. Heart score = 5. EKG with right bundle branch block pattern, first-degree AV block, sinus, rate 69, no change from 2019 comparison study. Chest x-ray without obvious infiltrates or fluid overload pattern, no pneumothorax or effusions. ED wet read. Chest x-ray. Impressions: ?No acute abnormality identified. Borderline cardiomegaly.? See tele radiology report. Lab data: White blood cell count 6900, hemoglobin 14.5, platelets adequate. Glucose 104. Normal renal function, serum CO2, electrolytes. Liver functions and lipase normal. Troponin negative/unmeasurable x2 interval sets. Troponin repeat also negative. Chest pain onset at rest, advanced age, no cardiac stress testing recalled prior, elevated heart score, consider provocative cardiac stress testing. Consult Cardiology. 624, case discussed with cardiology Dr. Toney who advises admission for stress testing. Patient agreeable. We will contact hospitalist. [id number], case info relayed by [facility] to night hospitalist Dr. Klein who defers admission to day hospitalist. 07, phone call no answer to hospitalist office 07, case discussed with day hospitalist Dr. Tohmpson who accepts patient for admission Critical Care Time Critical Care Time Critical Care Time: Yes Total Critical Care Time: 35 Attestation: The high probability of a clinically significant, sudden or life threatening deterioration of the [cardiopulmonary] system(s) required my full and direct attention, intervention and personal management. The aggregate critical care time was [35] minutes. This time is in addition to time spent performing reported procedures but includes the following: [x] Data Review and interpretation [x] Patient assessment and monitoring of vital signs [x] Documentation [x] Medication orders and management Discharge Plan Departure Patient Disposition: Admitted as Observation Clinical Impression: Chest pain Admit Date/Time: 03/02/25 07:28 Admit Provider: Yanick Vasquez
--- NOTE | 2025-03-02 03:35 | DI.RAD.S_ITS ---
PROCEDURE: XR CHEST 1V
[2025-03-02 03:47] LABS: Alanine Aminotransferase 30 IU/L (<35); Albumin 4.2 g/dL (3.5-5.0); Albumin Globulin Ratio 1.4 (1.0-2.8); Alkaline Phosphatase 69 U/L (38-126); Blood Urea Nitrogen 18 mg/dL (7-17); Calcium 9.3 mg/dL (8.4-10.2); Carbon Dioxide 22 mmol/L (22-32); Chloride 111 mmol/L (98-107); Estimated Glomerular Filt Rate > 60 mL/min (>60); Globulin 2.9 g/dL (1.7-4.1); Glucose 104 mg/dL (70-99); HEMOLYSIS 16 (0-50); Lipase 170 U/L (23-300); Magnesium 2.3 mg/dL (1.6-2.3); Potassium 3.4 mmol/L (3.4-5.1); Sodium 142 mmol/L (137-145); Total Protein 7.1 g/dL (6.3-8.2)
[2025-03-02 03:50] LABS: Add Manual Diff / Slide Review NO; Hematocrit 43.1 % (36-46); Hemoglobin 14.5 g/dL (12.0-16.0); Lymphocytes Absolute Auto 2400 /uL (1100-4500); Mean Corpuscular HGB Conc 33.6 % (30-36); Mean Corpuscular Hemoglobin 29.3 PG (26-34); Mean Corpuscular Volume 87.2 fL (80-100); Platelet Count 243 X10^3/uL (150-400)
[2025-03-02 03:59] LABS: NT-proBNP (BNP-Adult 18+) 162 pg/mL (<450); Troponin I < 0.012 ng/mL (0.01-0.034)
[2025-03-02] MEDS: FAMOTIDINE 20 MG/2 ML VIAL IV (04:07)
[2025-03-02 06:22] LABS: Troponin I < 0.012 ng/mL (0.01-0.034)
--- NOTE | 2025-03-02 09:38 | DI.NM.S_ITS ---
PROCEDURE: [facility] PERF SPECT R&S PHARM
--- NOTE | 2025-03-02 11:40 | P.HP_ITS ---
History of Present Illness
--- NOTE | 2025-03-02 11:40 | PM.HP.1 ---
History of Present Illness History of Present Illness Date Patient Seen: 03/02/25 Chief complaint: Chest pain atypical Narrative: Chief complaint: Atypical chest pain History of present illness: 03/02: 84-year-old female woke up at 3:00 a.m. this morning with left anterior chest comfort radiating to the left jaw lasting about 10 minutes resolved spontaneously there was associated sweating but no nausea vomiting radiation to other parts patient took a baby aspirin came to the emergency room for evaluation. Findings emergency room EKG shows first-degree AV block with left bundle troponin negative. Echocardiogram in 2020 had a normal ejection fraction and normal diastolic function nuclear medicine stress test in 2019 was negative for reversible ischemia Patient placed in observation for atypical chest pain cardiac telemetry serial troponins and nuclear medicine stress test in the morning We will also start anti-reflux measures as this is also very likely to be causing patient's symptoms Review of systems: No fever or chills rigors no cough No abdominal pain nausea vomiting diarrhea No urinary symptom No paresthesia or paresis Physical exam: Elderly female in no acute distress HEENT unremarkable Heart rate and rhythm regular Lungs clear Abdomen nondistended bowel sounds present Extremities no edema Neuro non Assessment and plan: Atypical chest pain: Telemetry and serial troponins to rule out myocardial infarction ischemia or arrhythmia Nuclear medicine stress test in the a PPI and sucralfate for suspected reflux symptoms Aspirin once a day and continue high-dose statin DVT prophylaxis: Subcutaneous heparin Code status: Full code blue Disposition: Observation and stress test in the morning Time based billin minutes were involved evaluation of this patient including [id number] evaluation physical examination discussion with ER provider review of previous medical records including previous [facility] stress test echocardiogram and present objective laboratory and imaging findings [facility] Medical History (Updated 03/02/25 @ 08:54 by Altagracia Amanda DO) Stroke COVID-19 Chest pain Wears glasses TIA (transient ischemic attack) (~2021) Osteoporosis Mumps Measles Chicken pox Vertigo Cataracts, bilateral (~2018) Surgical History (Updated 01/08/24 @ 20:15 by Edelmira Cai) Anesthesia Laceration of right calf History of hip replacement Family History (Updated 01/08/24 @ 20:16 by Edelmira Cai) Father Myocardial infarction Diabetes mellitus Mother Myocardial infarction Congestive heart failure Social History (Updated 12/09/24 @ 13:01 by Jenifer Martell MA) marital status: number of children: 3 household members: spouse lives independently: No () caregiver/support person: No housing: house pets and animals: No occupational status: previously employed current occupational exposures/hazards: No gurperet/christian: Zoroastrianism special gurpreet needs: No travel history: over 6 months ago leisure activities: music seatbelt use: always helmet use: No water heater temp set < 120 deg: Yes working smoke detector in home: Yes fire extinguisher in home: Yes carbon monox detector in home: Yes firearms in home: No do you feel safe at home: Yes Smoking Status: Never smoker alcohol intake: never substance use type: does not use during the past year weight has: remained stable well-balanced diet: daily or most days daily servings fruits/ve-1 caffeine: No eating out: other Type(s) of exercise: walking Meds Home Medications and Allergies Home Medications ?Medication ?Instructions ?Recorded ?Confirmed ?Type cholecalciferol (vitamin D3) 25 5,000 u PO QDAY ##0 01/01/11 03/02/25 History mcg (1,000 unit) tablet (Vitamin D3) vitamin E 268 mg (400 unit) capsule 400 unit PO DAILY ##0 01/01/11 03/02/25 History ascorbic acid (vitamin C) 1,000 mg 1,000 mg PO Q12H ##0 01/08/11 03/02/25 History tablet,extended release (Vitamin C ER) niacinamide 500 mg tablet (Niacin 500 mg PO QDAY ##0 01/08/11 03/02/25 History (niacinamide)) calcium 500 mg tablet 1,000 mg PO DAILY 07/20/20 03/02/25 History aspirin 81 mg tablet,delayed 81 mg PO DAILY #90 tabs 03/14/21 03/02/25 Rx release multivitamin (Multiple Vitamins 1 tab PO DAILY 01/19/24 03/02/25 History tablet) atorvastatin 40 mg tablet 40 mg PO BEDTIME 10/26/24 03/02/25 History latanoprost 0.005 % eye drops 1 drp EYE-BOTH DAILY 12/09/24 03/02/25 History Allergies Allergy/AdvReac Type Severity Reaction Status Date / Time No Known Drug Allergies Allergy Verified 03/02/25 03:29 Exam Vital Signs (past 8 hours): - 03/02/25 04:00 03/02/25 04:01 03/02/25 04:01 Temperature Pulse Rate 90 79 Respiratory Rate Blood Pressure 191/86 H Pulse Oximetry 94 93 Oxygen Delivery Method 03/02/25 04:30 03/02/25 04:30 03/02/25 05:00 Temperature Pulse Rate 67 64 Respiratory Rate Blood Pressure 158/74 H Pulse Oximetry 93 93 Oxygen Delivery Method 03/02/25 05:00 03/02/25 05:30 03/02/25 05:30 Temperature Pulse Rate 63 Respiratory Rate Blood Pressure 154/74 H 149/72 H Pulse Oximetry 95 Oxygen Delivery Method 03/02/25 06:00 03/02/25 06:00 03/02/25 06:30 Temperature Pulse Rate 60 59 L Respiratory Rate 13 Blood Pressure 164/77 H Pulse Oximetry 92 93 Oxygen Delivery Method Room Air 03/02/25 06:30 03/02/25 07:00 03/02/25 07:00 Temperature Pulse Rate 61 Respiratory Rate 24 Blood Pressure 164/72 H 181/81 H Pulse Oximetry 94 Oxygen Delivery Method 03/02/25 07:30 03/02/25 07:30 03/02/25 08:00 Temperature Pulse Rate 61 60 Respiratory Rate 18 14 Blood Pressure 160/77 H Pulse Oximetry 94 92 Oxygen Delivery Method 03/02/25 08:00 03/02/25 11:14 Temperature 97.7 F Pulse Rate 84 Respiratory Rate 18 Blood Pressure 168/79 H 126/77 Pulse Oximetry 97 Oxygen Delivery Method Oxygen Delivery Method Room Air Objective Labs 03/02/25 03:20 03/02/25 03:20 Labs: Laboratory Results - last 24 hr 03/02/25 03/02/25 03:20 05:30 WBC 6.9 RBC 4.94 Hgb 14.5 Hct 43.1 MCV 87.2 MCH 29.3 MCHC 33.6 RDW 13.8 Plt Count 243 Neut % (Auto) 53.6 Lymph % (Auto) 35.2 [place] % (Auto) 7.5 Eos % (Auto) 2.8 Baso % (Auto) 0.9 Neut # (Auto) 3700 Lymph # (Auto) 2400 [place] # (Auto) 500 Eos # (Auto) 200 Baso # (Auto) 100 Sodium 142 Potassium 3.4 Chloride 111 H Carbon Dioxide 22 BUN 18 H Creatinine 0.50 L Estimated GFR > 60 BUN/Creatinine Ratio 36.0 H Glucose 104 H Calcium 9.3 Magnesium 2.3 Total Bilirubin 1.0 AST 31 ALT 30 Alkaline Phosphatase 69 CK-MB (CK-2) Cancelled Troponin I < 0.012 < 0.012 NT-Pro-B Natriuret Pep 162 Total Protein 7.1 Albumin 4.2 Globulin 2.9 Albumin/Globulin Ratio 1.4 Lipase 170 Assessment & Plan Time-Based Coding :: [TOTAL MINUTES] spent with patient and on the chart (including review of chart, obtaining history, exam, reviewing outside data, placing orders, documenting exam and treatment plan, and counseling patient) on [DATE].
--- NOTE | 2025-03-02 13:45 | P.DS_ITS ---
History of Present Illness
--- NOTE | 2025-03-02 13:45 | PM.DS.1 ---
History of Present Illness History of Present Illness Chief complaint: Chest pain atypical Narrative: Chief complaint: Atypical chest pain History of present illness: 03/02: 84-year-old female woke up at 3:00 a.m. this morning with left anterior chest comfort radiating to the left jaw lasting about 10 minutes resolved spontaneously there was associated sweating but no nausea vomiting radiation to other parts patient took a baby aspirin came to the emergency room for evaluation. Findings emergency room EKG shows first-degree AV block with left bundle troponin negative. Echocardiogram in 2020 had a normal ejection fraction and normal diastolic function nuclear medicine stress test in 2018 was negative for reversible ischemia Patient placed in observation for atypical chest pain cardiac telemetry serial troponins and nuclear medicine stress test in the morning We will also start anti-reflux measures as this is also very likely to be causing patient's symptoms Review of systems: No fever or chills rigors no cough No abdominal pain nausea vomiting diarrhea No urinary symptom No paresthesia or paresis Physical exam: Elderly female in no acute distress HEENT unremarkable Heart rate and rhythm regular Lungs clear Abdomen nondistended bowel sounds present Extremities no edema Neuro non Hospital course: Stress test was low risk patient discharged home on Protonix Carafate and anti-reflux measures for presumed gastroesophageal reflux with esophageal spasm Assessment and plan: Atypical chest pain: Nuclear medicine stress test negative PPI and sucralfate for suspected reflux symptoms Aspirin once a day and continue high-dose statin DVT prophylaxis: Subcutaneous heparin Code status: Full code blue Disposition: Observation and stress test in the morning Time based billin minutes were involved evaluation of this patient including [id number] evaluation physical examination discussion with ER provider review of previous medical records including previous staph stress test echocardiogram and present objective laboratory and imaging findings Discharge Providers Provider Date of admission: 03/02/25 07:28 Discharge Date: 03/02/25 Primary care physician: Lauren Macias DO Discharge provider: aYnick Vasquez MD Exam Vital Signs (past 8 hours): - 03/02/25 06:00 03/02/25 06:00 03/02/25 06:30 Temperature Pulse Rate 60 59 L Respiratory Rate 13 Blood Pressure 164/77 H Pulse Oximetry 92 93 Oxygen Delivery Method Room Air 03/02/25 06:30 03/02/25 07:00 03/02/25 07:00 Temperature Pulse Rate 61 Respiratory Rate 24 Blood Pressure 164/72 H 181/81 H Pulse Oximetry 94 Oxygen Delivery Method 03/02/25 07:30 03/02/25 07:30 03/02/25 08:00 Temperature Pulse Rate 61 60 Respiratory Rate 18 14 Blood Pressure 160/77 H Pulse Oximetry 94 92 Oxygen Delivery Method 03/02/25 08:00 03/02/25 11:14 Temperature 97.7 F Pulse Rate 84 Respiratory Rate 18 Blood Pressure 168/79 H 126/77 Pulse Oximetry 97 Oxygen Delivery Method Oxygen Delivery Method Room Air Objective Labs 03/02/25 03:20 03/02/25 03:20 Labs: Laboratory Results - last 24 hr 03/02/25 03/02/25 03:20 05:30 WBC 6.9 RBC 4.94 Hgb 14.5 Hct 43.1 MCV 87.2 MCH 29.3 MCHC 33.6 RDW 13.8 Plt Count 243 Neut % (Auto) 53.6 Lymph % (Auto) 35.2 Clay % (Auto) 7.5 Eos % (Auto) 2.8 Baso % (Auto) 0.9 Neut # (Auto) 3700 Lymph # (Auto) 2400 Clay # (Auto) 500 Eos # (Auto) 200 Baso # (Auto) 100 Sodium 142 Potassium 3.4 Chloride 111 H Carbon Dioxide 22 BUN 18 H Creatinine 0.50 L Estimated GFR > 60 BUN/Creatinine Ratio 36.0 H Glucose 104 H Calcium 9.3 Magnesium 2.3 Total Bilirubin 1.0 AST 31 ALT 30 Alkaline Phosphatase 69 CK-MB (CK-2) Cancelled Troponin I < 0.012 < 0.012 NT-Pro-B Natriuret Pep 162 Total Protein 7.1 Albumin 4.2 Globulin 2.9 Albumin/Globulin Ratio 1.4 Lipase 170 [facility] History (Updated 03/02/25 @ 08:54 by Altagracia Amanda DO) Stroke COVID-19 Chest pain Wears glasses TIA (transient ischemic attack) (~2021) Osteoporosis Mumps Measles Chicken pox Vertigo Cataracts, bilateral (~2018) Surgical History (Updated 01/08/24 @ 20:15 by Edelmira Cai) Anesthesia Laceration of right calf History of hip replacement Family History (Updated 01/08/24 @ 20:16 by Edelmira Cai) Father Myocardial infarction Diabetes mellitus Mother Myocardial infarction Congestive heart failure Social History (Updated 12/09/24 @ 13:01 by JYOTI Gallagher marital status: number of children: 3 household members: spouse lives independently: No () caregiver/support person: No housing: house pets and animals: No occupational status: previously employed current occupational exposures/hazards: No gurpreet/spiritism: [employer] special gurpreet needs: No travel history: over 6 months ago leisure activities: music seatbelt use: always helmet use: No water heater temp set < 120 deg: Yes working smoke detector in home: Yes fire extinguisher in home: Yes carbon monox detector in home: Yes firearms in home: No do you feel safe at home: Yes Smoking Status: Never smoker alcohol intake: never substance use type: does not use during the past year weight has: remained stable well-balanced diet: daily or most days daily servings fruits/ve-1 caffeine: No eating out: other Type(s) of exercise: walking Discharge Plan Discharge Plan Patient Disposition: Home Discharge orders & Medications Prescriptions: New pantoprazole [Protonix] 40 mg tablet,delayed release (DR/EC) 40 mg PO DAILY Qty: 30 0RF sucralfate 100 mg/mL suspension 10 ml PO QACHS Qty: 400 0RF Continued cholecalciferol (vitamin D3) [Vitamin D3] 1,000 UNIT tablet 5,000 u PO QDAY Qty: 0 vitamin E 400 unit Capsule 400 unit PO DAILY Qty: 0 Vitamin C 1,000 mg Tablet Extended Release 1,000 mg PO Q12H Qty: 0 niacinamide [Niacin (niacinamide)] 500 MG tablet 500 mg PO QDAY Qty: 0 latanoprost 0.005 % drops 1 drp EYE-BOTH DAILY multivitamin [Multiple Vitamins] Tablet 1 tab PO DAILY atorvastatin 40 mg tablet 40 mg PO BEDTIME aspirin 81 mg Tablet,Delayed Release (Dr/Ec) 81 mg PO DAILY Qty: 90 3RF calcium 500 mg Tablet 1,000 mg PO DAILY Follow up/Referrals: Lauren Macias DO [Primary Care Provider, Family Practice] Visit Report/Discharge Packet Stand Alone Forms: Patient Portal/API, Stroke Signs & Symptoms Discharge Data Primary Care Provider: Lauren Macias Attending Provider: Yanick Vasuqez Admba Date/Time: 03/02/25 07:28
--- NOTE | 2025-03-02 14:09 | PC.NURSE ---
Pt arrived from ED @ 0830 A/O Denies discomfort Stress test completed w/o incidence. orders for D/C, SL Discontinued intact Home instructions given w/understanding. Pt escorted by staff via W/C to waiting vehicle D/C in stable status
== END 2025-03-02 14:10 | disposition home or self-care (01) ==
LOC: ED 03:31 → AC 07:29
PROVIDERS: Admitting Provider Internal Medicine; Emergency Provider Emergency Medicine; PCP Family Medicine; Referring Provider Emergency Medicine; Visit Provider Internal Medicine
DX: R07.89 Other chest pain (principal); R61 Generalized hyperhidrosis; Z86.73 Personal history of transient ischemic attack (TIA), and cerebral infarction without residual deficits; I44.0 Atrioventricular block, first degree
CPT/HCPCS: 36415; 71045; 78452; 80053; 83690; 83735; 83880; 84484; 85025; 93005; 93017; 96374; 99284; 99291; G0378; A9502; J2785